=== PATIENT | female | born 1950 | race Caucasian/White ===

== ENCOUNTER 2016-11-30 06:39 | Day surgery (SDC) | payer MEDICARE, BC ==
[2016-11-30] MEDS ORDERED: Sodium Chloride 0.9% 1,000 ML IV SCH (07:00)
[2016-11-30] MEDS ORDERED: fentaNYL 100 MCG/2 ML SDV ONE (07:41)
[2016-11-30] MEDS ORDERED: Propofol 200 MG/20 ML SDV ONE (07:41)
[2016-11-30] MEDS ORDERED: Midazolam 1 MG/ML 2 ML SDV ONE (07:42)
[2016-11-30 08:58] VITALS: BP 106/58
--- NOTE | 2016-11-30 11:04 | OR ---
DATE OF PROCEDURE: 11/30/2016 PROCEDURE: Colonoscopy. FINDINGS: Normal colonoscopy. PREOPERATIVE DIAGNOSIS: Screening colonoscopy. POSTOPERATIVE DIAGNOSIS: Screening colonoscopy. RISKS: Risks, benefits, alternatives, and limitations including, but not limited to infection, bleeding, and perforation were explained to the patient, and she wished to proceed. PROCEDURE IN DETAIL: The patient was placed in left lateral decubitus position. Digital rectal exam was performed without abnormality. The scope was introduced and advanced atraumatically to the ileocecal valve. The scope was brought back to the ascending, transverse, descending colon, and retroflexed. No masses. No blood. No polyps. No diverticulosis. No abnormalities and retroflexed. The patient tolerated the procedure well. Jesus Benitez MD /[id number]
== END 2016-11-30 09:20 | disposition home or self-care (01) ==
LOC: JP.SDS 06:39
PROVIDERS: ATTEND Surgery
DX: Z12.11 Encounter for screening for malignant neoplasm of colon (principal); I10 Essential (primary) hypertension; E11.9 Type 2 diabetes mellitus without complications; E03.9 Hypothyroidism, unspecified; K21.9 Gastro-esophageal reflux disease without esophagitis; Z88.8 Allergy status to other drugs, medicaments and biological substances; Z91.030 Bee allergy status
CPT/HCPCS: G0121; J2250; J2704; J3010; J7040

== ENCOUNTER 2020-09-15 21:40 | Emergency (ER) | payer MEDICARE, BC ==
[2020-09-15] MEDS ORDERED: Ketorolac 30 MG/ML SDV IM ONE (22:51)
--- NOTE | 2020-09-15 22:54 | EDM.PDOC ---
ED HPI GENERAL MEDICAL PROBLEM - General Chief Complaint: General Stated Complaint: COVID SHOT SUNDAY, NOT FELING WELL Time Seen by Provider: 09/15/20 22:46 Source of Information: Reports: Patient, Family, RN Notes Reviewed History Limitations: Reports: No Limitations - History of Present Illness INITIAL COMMENTS - FREE TEXT/NARRATIVE: 70-year-old female presents emergency department a complaint of confusion and fever. She recently received her second Covid shot Materna yesterday then started developing symptoms she has taken Tylenol. Her biggest issue is that she gets confused and cannot give herself her insulin injections - Related Data Allergies Allergy/AdvReac Type Severity Reaction Status Date / Time venom-honey bee Allergy Severe Difficulty Verified 09/15/20 22:17 [bee venom (honey bee)] Breathing lisinopril AdvReac Cough Verified 09/15/20 22:17 Home Meds: Home Meds Acyclovir [Zovirax] 200 mg PO ASDIRECTED PRN 10/16/14 [History] Aspirin [Halfprin] 81 mg PO DAILY 10/16/14 [History] EPINEPHrine [Epinephrine] 0.3 mg IJ ASDIRECTED PRN 10/16/14 [History] Levothyroxine [Synthroid] 125 mcg PO DAILY 10/16/14 [History] Losartan Potassium 100 mg PO DAILY 10/16/14 [History] Albuterol [Ventolin HFA] 2 puff INH Q4H PRN #1 puff 10/22/14 [Rx] Cholecalciferol (Vitamin D3) [Vitamin D3] 1,000 units PO DAILY 11/28/16 [History] nadoloL [Naldol] 1.5 tab PO DAILY 11/28/16 [History] metFORMIN [Glucophage XR] 1,000 mg PO BIDMEALS 11/30/16 [History] Calcium Carbonate/Magnesium Ox [Oyster Shell Calcium-Magnes] 1 tab PO DAILY 09/15/20 [History] Insulin Detemir [Levemir Flextouch] 30 unit SQ BEDTIME 09/15/20 [History] Past Medical History HEENT History: Reports: Impaired Vision, Sinusitis Cardiovascular History: Reports: Hypertension Respiratory History: Reports: SOB Gastrointestinal History: Reports: Cholelithiasis, GERD, Other (See Below) Other Gastrointestinal History: "fatty liver disease" Genitourinary History: Reports: UTI, Recurrent 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: Musculoskeletal History: Reports: Arthritis, Back Pain, Chronic Neurological History: Reports: Concussion Endocrine/Metabolic History: Reports: Diabetes, Type II, Hypothyroidism - Infectious Disease History Infectious Disease History: Reports: Chicken Pox, Measles, Mumps - Past Surgical History GI Surgical History: Reports: Appendectomy, Cholecystectomy Female Surgical History: Reports: Section, Tubal Ligation Musculoskeletal Surgical History: Reports: Other (See Below) Other Musculoskeletal Surgeries/Procedures:: cortisone injections bilateral shoulders Social & Family History - Family History Family Medical History: No Pertinent Family History - Tobacco Use Tobacco Use Status *Q: Former Tobacco User Used Tobacco, but Quit: Yes Month/Year Tobacco Last Used: 2000 - Caffeine Use Caffeine Use: Reports: Coffee - Recreational Drug Use Recreational Drug Use: No ED ROS GENERAL - Review of Systems Review Of Systems: See Below Constitutional: Reports: Fever. Denies: Chills HEENT: Reports: No Symptoms Respiratory: Reports: No Symptoms Cardiovascular: Reports: No Symptoms GI/Abdominal: Reports: No Symptoms : Reports: No Symptoms Neurological: Reports: Confusion ED EXAM, GENERAL - Physical Exam Exam: See Below Exam Limited By: No Limitations General Appearance: Alert, WD/WN, No Apparent Distress Respiratory/Chest: No Respiratory Distress, Lungs Clear, Normal Breath Sounds, No Accessory Muscle Use, Chest Non-Tender Cardiovascular: Regular Rate, Rhythm, No Murmur GI/Abdominal: Soft, Non-Tender Extremities: No Pedal Edema Course - Vital Signs Last Recorded V/S: Last Vital Signs Temp 99.7 F 09/16/20 00:46 Pulse 68 09/16/20 00:46 Resp 20 09/16/20 00:46 BP 137/49 L 09/16/20 00:46 Pulse Ox 95 09/16/20 00:46 - Orders/Labs/Meds Orders: Active Orders 24 hr Category Date Time Status Vital Signs [RC] Q1H Care 09/15/20 22:51 Active Chest 2V [CR] Routine Exams 09/15/20 22:50 Taken Labs: Laboratory Tests 09/15/20 09/15/20 09/15/20 Range/Units 23:04 23:04 23:04 WBC 5.4 (4.5-11.0) K/uL RBC 3.97 (3.30-5.50) M/uL Hgb 11.9 L D (12.0-15.0) g/dL Hct 36.2 (36.0-48.0) % MCV 91 (80-98) fL MCH 30 (27-31) pg MCHC 33 (32-36) % Plt Count 97 L (150-400) K/uL Neut % (Auto) 81 H (36-66) % Lymph % (Auto) 10 L (24-44) % Peach % (Auto) 8 H (2-6) % Eos % (Auto) 0 L (2-4) % Baso % (Auto) 0 (0-1) % Sodium 136 L (140-148) mmol/L Potassium 4.6 (3.6-5.2) mmol/L Chloride 98 L (100-108) mmol/L Carbon Dioxide 23 (21-32) mmol/L Anion Gap 19.6 H (5.0-14.0) mmol/L BUN 23 H D (7-18) mg/dL Creatinine 1.1 H D (0.6-1.0) mg/dL Est Cr Clr Drug Dosing 37.10 mL/min Estimated GFR (MDRD) 49 L (>60) Glucose 324 H (74-106) mg/dL Lactic Acid 3.4 H (0.4-2.0) mmol/L Calcium 9.6 (8.5-10.1) mg/dL Total Bilirubin 1.9 H D (0.2-1.0) mg/dL AST 53 H D (15-37) U/L ALT 50 (12-78) U/L Alkaline Phosphatase 173 H (46-116) U/L C-Reactive Protein 4.77 H (0.0-0.3) mg/dL Total Protein 7.0 (6.4-8.2) g/dL Albumin 3.3 L (3.4-5.0) g/dL Globulin 3.7 H (2.3-3.5) g/dL Albumin/Globulin Ratio 0.9 L (1.2-2.2) Procalcitonin ng/mL Urine Color (YELLOW) Urine Appearance (CLEAR) Urine pH (5.0-8.0) Ur Specific Garfield (1.008-1.030) Urine Protein (NEGATIVE) mg/dL Urine Glucose (UA) (NEGATIVE) mg/dL Urine Ketones (NEGATIVE) mg/dL Urine Occult Blood (NEGATIVE) Urine Nitrite (NEGATIVE) Urine Bilirubin (NEGATIVE) Urine Urobilinogen (0.2-1.0) EU/dL Ur Leukocyte Esterase (NEGATIVE) Urine RBC (0-5) Urine WBC (0-5) Ur Epithelial Cells Amorphous Sediment Urine Bacteria Urine Mucus Influenza Type A RNA (NEGATIVE) RSV RNA (INAAT) (NEGATIVE) Influenza Type B RNA (NEGATIVE) SARS-CoV-2 RNA (RENÉ) (NEGATIVE) 09/15/20 09/15/20 09/15/20 Range/Units 23:04 23:10 23:53 WBC (4.5-11.0) K/uL RBC (3.30-5.50) M/uL Hgb (12.0-15.0) g/dL Hct (36.0-48.0) % MCV (80-98) fL MCH (27-31) pg MCHC (32-36) % Plt Count (150-400) K/uL Neut % (Auto) (36-66) % Lymph % (Auto) (24-44) % Peach % (Auto) (2-6) % Eos % (Auto) (2-4) % Baso % (Auto) (0-1) % Sodium (140-148) mmol/L Potassium (3.6-5.2) mmol/L Chloride (100-108) mmol/L Carbon Dioxide (21-32) mmol/L Anion Gap (5.0-14.0) mmol/L BUN (7-18) mg/dL Creatinine (0.6-1.0) mg/dL Est Cr Clr Drug Dosing mL/min Estimated GFR (MDRD) (>60) Glucose (74-106) mg/dL Lactic Acid (0.4-2.0) mmol/L Calcium (8.5-10.1) mg/dL Total Bilirubin (0.2-1.0) mg/dL AST (15-37) U/L ALT (12-78) U/L Alkaline Phosphatase (46-116) U/L C-Reactive Protein (0.0-0.3) mg/dL Total Protein (6.4-8.2) g/dL Albumin (3.4-5.0) g/dL Globulin (2.3-3.5) g/dL Albumin/Globulin Ratio (1.2-2.2) Procalcitonin 0.52 ng/mL Urine Color Yellow (YELLOW) Urine Appearance Slightly cloudy A (CLEAR) Urine pH 5.5 (5.0-8.0) Ur Specific Garfield >= 1.030 (1.008-1.030) Urine Protein 30 H (NEGATIVE) mg/dL Urine Glucose (UA) 500 H (NEGATIVE) mg/dL Urine Ketones Trace H (NEGATIVE) mg/dL Urine Occult Blood Small H (NEGATIVE) Urine Nitrite Negative (NEGATIVE) Urine Bilirubin Negative (NEGATIVE) Urine Urobilinogen 1.0 (0.2-1.0) EU/dL Ur Leukocyte Esterase Negative (NEGATIVE) Urine RBC 0-5 (0-5) Urine WBC 0-5 (0-5) Ur Epithelial Cells Moderate Amorphous Sediment Not seen Urine Bacteria Few Urine Mucus Many Influenza Type A RNA Negative (NEGATIVE) RSV RNA (INAAT) Negative (NEGATIVE) Influenza Type B RNA Negative (NEGATIVE) SARS-CoV-2 RNA (RENÉ) Negative (NEGATIVE) Meds: Medications Discontinued Medications Generic Name Dose Route Start Last Admin Trade Name Amada PRN Reason Stop Dose Admin Ketorolac Tromethamine 30 mg 09/15/20 22:51 09/15/20 23:14 Ketorolac 30 Mg/Ml Sdv IM 09/15/20 22:52 30 mg ONETIME ONE Administration Departure - Departure Time of Disposition: 00:56 Disposition: Home, Self-Care 01 Condition: Fair Clinical Impression: Adverse effect of COVID-19 vaccine - Discharge Information Referrals: Braden Bucio MD [Primary Care Provider] - Forms: ED Department Discharge Additional Instructions: Continue symptomatic care Tylenol or Motrin as needed, rest and fluids, please followup with your primary care provider in 2-3 days if not better, please call return to the emergency department with worsening of symptoms. Sepsis Event Note (ED) - Evaluation Sepsis Screening Result: No Definite Risk - Focused Exam Vital Signs: Vital Signs Temp Pulse Resp BP Pulse Ox 09/16/20 00:46 99.7 F 68 20 137/49 L 95 09/15/20 23:45 70 22 H 145/60 H 94 L 09/15/20 22:15 101.8 F H 87 20 172/88 H 94 L 09/15/20 22:13 101.8 F H 87 20 172/88 H 94 L - My Orders Last 24 Hours: My Active Orders 09/15/20 22:50 Chest 2V [CR] Routine 09/15/20 22:51 Vital Signs [RC] Q1H - Assessment/Plan Last 24 Hours: My Active Orders 09/15/20 22:50 Chest 2V [CR] Routine 09/15/20 22:51 Vital Signs [RC] Q1H Plan: Assessment Acuity = acute Site and laterality = fever, confusion Etiology = probably from Pfizer Covid shot Manifestations = none Location of injury = Home Lab values = CBC unremarkable creatinine elevated 1.1 consistent chronic renal failure stage T3a Leukos elevated 324 consistent hyperglycemia lactic acid slightly elevated 3.4 consistent with lactic acidosis CRP elevated 4.77 urinalysis negative Covid was negative chest x-ray I did review films myself I cannot appreciate any acute process, the official read from radiology is pending Plan I did review with her side effects that we have seen from the Covid vaccine talk to her about hospital admission her biggest thing with confusion is she has difficulty running her insulin. She declined on admission would like to go home and do watchful waiting. She will return with worsening of symptoms This note was dictated using [employer] voice recognition software please call with any questions on syntax or grammar.
[2020-09-16 00:47] LABS: CORONAVIRUS COVID-19 NAA NEGATIVE (NEGATIVE)
[2020-09-16 00:48] VITALS: BP 137/49; PULSE 68
--- NOTE | 2020-09-16 09:28 | CR ---
CHEST: 2 view CLINICAL HISTORY:SOB COMPARISON:2014 FINDINGS: The heart size, pulmonary vascularity and hilar structures are normal. No infiltrate effusion or pneumothorax is seen. IMPRESSION: No acute cardiopulmonary process.
== END 2020-09-16 01:02 | disposition home or self-care (01) ==
LOC: JP.ED 21:40
DX: R41.0 Disorientation, unspecified (principal); R50.9 Fever, unspecified; T88.1XXA Other complications following immunization, not elsewhere classified, initial encounter; I10 Essential (primary) hypertension; M19.90 Unspecified osteoarthritis, unspecified site; E11.9 Type 2 diabetes mellitus without complications; E03.9 Hypothyroidism, unspecified; Z87.891 Personal history of nicotine dependence; Z91.030 Bee allergy status; Z88.8 Allergy status to other drugs, medicaments and biological substances; Z79.82 Long term (current) use of aspirin; Z79.4 Long term (current) use of insulin; Z79.899 Other long term (current) drug therapy; Z20.822 Contact with and (suspected) exposure to COVID-19
CPT/HCPCS: 0241U; 36415; 71046; 80053; 81001; 83605; 84145; 85025; 86140; 96372; 99285; J1885; 99283

== ENCOUNTER 2022-11-28 17:17 | Emergency (ER) | payer MEDICARE, BC ==
[2022-11-28] MEDS ORDERED: Sodium Chloride 0.9% 10 ML Syringe FLUSH PRN (17:53)
[2022-11-28 18:11] LABS: BASOPHILS ABSOLUTE AUTO 0.01 K/uL (0.00-0.10); BASOPHILS PERCENT AUTO 0.2 % (0.1-1.3); EOSINOPHILS ABSOLUTE AUTO 0.03 K/uL (0.00-0.40); EOSINOPHILS PERCENT AUTO 0.6 % (0.0-5.4); HEMATOCRIT 31.8 % (34.3-46.0); HEMOGLOBIN 10.7 g/dL (11.2-15.5); IMMATURE GRAN ABSOLUTE AUTO 0.02 K/uL (0.00-0.23); IMMATURE GRAN PERCENT AUTO 0.4 % (0.0-0.7); LYMPHOCYTES ABSOLUTE AUTO 0.38 K/uL (0.8-3.3); LYMPHOCYTES PERCENT AUTO 8.1 % (11.4-47.7); MEAN CORPUSCULAR HEMOGLOBIN 30.8 pg (31.6-35.5); MEAN CORPUSCULAR HGB CONC 33.6 g/dL (31.6-35.5); MEAN CORPUSCULAR VOLUME 91.6 fL (81.4-99.0); MONOCYTES ABSOLUTE AUTO 0.51 K/uL (0.20-0.90); MONOCYTES PERCENT AUTO 10.8 % (3.3-12.6); NEUTROPHILS ABSOLUTE AUTO 3.77 K/uL (1.0-7.6); NEUTROPHILS PERCENT AUTO 79.9 % (40.0-78.1); PLATELET COUNT,PLT 82 K/uL (130-375); RED BLOOD CELL COUNT 3.47 M/uL (3.77-5.24); WHITE BLOOD CELL COUNT,WBC 4.7 K/uL (3.2-11.0)
[2022-11-28 18:28] VITALS: PULSE 91
[2022-11-28 18:31] LABS: A/G RATIO 0.6 (1.2-2.2); ALANINE AMINOTRANSFERASE,ALT 43 U/L (12-78); ALBUMIN 2.4 g/dL (3.4-5.0); ALKALINE PHOSPHATASE 210 U/L (46-116); ASPARTATE AMNIOTRANSFERASE,AST 59 U/L (15-37); BILIRUBIN TOTAL 1.7 mg/dL (0.2-1.0); BLOOD UREA NITROGEN,BUN 14 mg/dL (7-18); CALCIUM 8.8 mg/dL (8.5-10.1); CARBON DIOXIDE,CO2 27 mmol/L (21-32); CHLORIDE,CL 102 mmol/L (100-108); CREATININE 0.8 mg/dL (0.6-1.0); EST CRCL DRUG DOSING (CG) 49.53 mL/min; ESTIMATED GFR 78 mL/min (>60); GLUCOSE RANDOM 227 mg/dL (74-106); PROTEIN TOTAL,TP 6.7 g/dL (6.4-8.2); SODIUM,NA 134 mmol/L (140-148)
[2022-11-28] MEDS ORDERED: Lactulose Soln 10 GM/15 ML 15 ML UD Cup PO ONE (18:41)
[2022-11-28] MEDS ORDERED: LACTULOSE 200 GM RECTAL ONE ×2 (18:42)
[2022-11-28] MEDS ORDERED: WATER FOR IRRIGATION STERILE RECTAL ONE ×2 (18:42)
[2022-11-28 18:59] LABS: APPEARANCE,URINE SLIGHTLY CLOUDY (CLEAR); BILIRUBIN,URINE NEGATIVE (NEGATIVE); COLOR,URINE YELLOW (YELLOW); GLUCOSE,URINE 250 mg/dL (NEGATIVE); KETONES,URINE NEGATIVE (NEGATIVE); LEUKOCYTE ESTERASE,URINE NEGATIVE (NEGATIVE); NITRITE,URINE NEGATIVE (NEGATIVE); OCCULT BLOOD,URINE NEGATIVE (NEGATIVE); PROTEIN,URINE TRACE mg/dL (NEGATIVE)
[2022-11-28 19:04] LABS: AMORPHOUS SEDIMENT,URINE NOT SEEN; BACTERIA,URINE MODERATE; EPITHELIAL CELLS,URINE MODERATE; MUCUS,URINE NOT SEEN; RBC,URINE 0-5 (0-5); WBC,URINE 0-5 (0-5)
[2022-11-28 22:02] VITALS: BP 140/57
== END 2022-11-28 22:05 ==
LOC: JP.ED 17:17
DX: K76.82 Hepatic encephalopathy (principal); I10 Essential (primary) hypertension; M19.90 Unspecified osteoarthritis, unspecified site; E11.9 Type 2 diabetes mellitus without complications; E03.9 Hypothyroidism, unspecified; Z86.16 Personal history of COVID-19; Z91.030 Bee allergy status; Z88.6 Allergy status to analgesic agent; Z88.8 Allergy status to other drugs, medicaments and biological substances; Z79.82 Long term (current) use of aspirin; Z79.84 Long term (current) use of oral hypoglycemic drugs; Z79.899 Other long term (current) drug therapy; W06.XXXA Fall from bed, initial encounter
CPT/HCPCS: 36415; 80053; 81001; 82140; 82947; 83605; 85025; 99284; A9270

== ENCOUNTER 2023-04-14 19:37 | Inpatient (IN) | payer MEDICARE, BC ==
[2023-04-14 20:00] LABS: BASOPHILS ABSOLUTE AUTO 0.02 K/uL (0.00-0.10); BASOPHILS PERCENT AUTO 0.3 % (0.1-1.3); EOSINOPHILS ABSOLUTE AUTO 0.05 K/uL (0.00-0.40); EOSINOPHILS PERCENT AUTO 0.7 % (0.0-5.4); HEMATOCRIT 32.7 % (34.3-46.0); HEMOGLOBIN 10.8 g/dL (11.2-15.5); IMMATURE GRAN ABSOLUTE AUTO 0.02 K/uL (0.00-0.23); IMMATURE GRAN PERCENT AUTO 0.3 % (0.0-0.7); LYMPHOCYTES PERCENT AUTO 6.9 % (11.4-47.7); MEAN CORPUSCULAR HEMOGLOBIN 30.4 pg (31.6-35.5); MEAN CORPUSCULAR VOLUME 92.1 fL (81.4-99.0); MONOCYTES ABSOLUTE AUTO 0.65 K/uL (0.20-0.90); NEUTROPHILS PERCENT AUTO 82.8 % (40.0-78.1); PLATELET COUNT,PLT 95 K/uL (130-375); RED BLOOD CELL COUNT 3.55 M/uL (3.77-5.24); WHITE BLOOD CELL COUNT,WBC 7.2 K/uL (3.2-11.0)
[2023-04-14] MEDS ORDERED: Sodium Chloride 0.9% 1,000 ML IV SCH (20:00)
[2023-04-14 20:18] LABS: MAGNESIUM 1.6 mg/dL (1.8-2.4)
[2023-04-14 20:23] LABS: A/G RATIO 0.6 (1.2-2.2); ALANINE AMINOTRANSFERASE,ALT 32 U/L (12-78); ALBUMIN 2.7 g/dL (3.4-5.0); ALKALINE PHOSPHATASE 185 U/L (46-116); ASPARTATE AMNIOTRANSFERASE,AST 44 U/L (15-37); BILIRUBIN TOTAL 1.4 mg/dL (0.2-1.0); BLOOD UREA NITROGEN,BUN 20 mg/dL (7-18); CARBON DIOXIDE,CO2 25 mmol/L (21-32); CHLORIDE,CL 104 mmol/L (100-108); CREATININE 1.1 mg/dL (0.6-1.0); ESTIMATED GFR 53 mL/min (>60); GLUCOSE RANDOM 309 mg/dL (74-106); POTASSIUM,K 4.6 mmol/L (3.6-5.2); SODIUM,NA 137 mmol/L (140-148)
[2023-04-14 20:25] LABS: ANION GAP 12.6 mmol/L (5.0-14.0)
[2023-04-14] MEDS ORDERED: Lactulose Soln 10 GM/15 ML 15 ML UD Cup PO ONE (20:32)
[2023-04-14 21:44] LABS: CORONAVIRUS COVID-19 NAA NEGATIVE (NEGATIVE); INFLUENZA A NAA NEGATIVE (NEGATIVE); INFLUENZA B NAA NEGATIVE (NEGATIVE); RESPIRATORY SYNCYTIAL VIR NAA NEGATIVE (NEGATIVE)
[2023-04-14] MEDS ORDERED: Ondansetron 4 MG Tab.DIS PO PRN (22:55)
[2023-04-14] MEDS ORDERED: Sennosides/Docusate Sodium 50-8.6 MG Tab PO PRN (22:55)
[2023-04-14] MEDS ORDERED: Ondansetron 4 MG/2 ML SDV IV PRN (22:55)
[2023-04-14] MEDS ORDERED: Magnesium Hydroxide 400 MG/5 ML Susp 30 ML Cup PO PRN (22:55)
[2023-04-14] MEDS: metFORMIN 500 MG Tab PO SCH (23:25)
[2023-04-14] MEDS: Lactulose Soln 10 GM/15 ML 15 ML UD Cup PO SCH (23:25)
[2023-04-14] MEDS: Sodium Chloride 0.9% 1,000 ML IV SCH (23:28)
[2023-04-14] MEDS: Magnesium Sulfate/Water 2 GM in Premix Bag 1 BAG IV SCH (23:40)
[2023-04-15] MEDS: Lactulose Soln 10 GM/15 ML 15 ML UD Cup PO SCH ×8 (00:55→21:04)
[2023-04-15] MEDS: Magnesium Sulfate/Water 2 GM in Premix Bag 1 BAG IV SCH (04:59)
[2023-04-15 05:17] LABS: HEMATOCRIT 27.8 % (34.3-46.0); HEMOGLOBIN 9.1 g/dL (11.2-15.5); MEAN CORPUSCULAR HEMOGLOBIN 30.1 pg (31.6-35.5); MEAN CORPUSCULAR HGB CONC 32.7 g/dL (31.6-35.5); MEAN CORPUSCULAR VOLUME 92.1 fL (81.4-99.0); RED BLOOD CELL COUNT 3.02 M/uL (3.77-5.24)
[2023-04-15 05:35] LABS: A/G RATIO 0.6 (1.2-2.2); ALANINE AMINOTRANSFERASE,ALT 29 U/L (12-78); ALBUMIN 2.1 g/dL (3.4-5.0); ALKALINE PHOSPHATASE 145 U/L (46-116); ASPARTATE AMNIOTRANSFERASE,AST 33 U/L (15-37); BILIRUBIN TOTAL 1.6 mg/dL (0.2-1.0); BLOOD UREA NITROGEN,BUN 17 mg/dL (7-18); CARBON DIOXIDE,CO2 24 mmol/L (21-32); CHLORIDE,CL 109 mmol/L (100-108); CREATININE 0.8 mg/dL (0.6-1.0); EST CRCL DRUG DOSING (CG) 49.53 mL/min; ESTIMATED GFR 78 mL/min (>60); GLUCOSE RANDOM 156 mg/dL (74-106); PROTEIN TOTAL,TP 5.9 g/dL (6.4-8.2); SODIUM,NA 139 mmol/L (140-148)
[2023-04-15] MEDS ORDERED: metFORMIN 500 MG Tab PO SCH (08:00)
[2023-04-15] MEDS: Levothyroxine 100 MCG Tab PO SCH (08:03)
[2023-04-15] MEDS: metFORMIN 500 MG Tab PO SCH ×2 (08:04→16:56)
[2023-04-15] MEDS: Aspirin 81 MG Tab.EC PO SCH (08:04)
[2023-04-15] MEDS: Insulin Lispro 100 Unit/ML 3 ML KwikPen SUBCUT SCH ×4 (08:15→21:04)
[2023-04-15] MEDS: Losartan 50 MG Tab PO SCH ×2 (08:20→10:38)
[2023-04-15] MEDS: Insulin Glargine,Human Rec. Analog 100 Units/ML 3 ML Pen SUBCUT SCH ×2 (08:24→21:06)
[2023-04-15] MEDS: Sodium Chloride 0.9% 1,000 ML IV SCH (08:31)
[2023-04-15] MEDS ORDERED: NADOLOL PO SCH (09:00)
[2023-04-15] MEDS: Levothyroxine 25 MCG Tab PO SCH (09:01)
[2023-04-15] MEDS: Metoprolol Succinate 50 MG Tab.ER PO SCH (13:34)
[2023-04-15] MEDS: Magnesium Oxide 400 MG Tab PO SCH ×2 (15:14→21:06)
[2023-04-15 19:05] LABS: APPEARANCE,URINE CLOUDY (CLEAR); BILIRUBIN,URINE NEGATIVE (NEGATIVE); COLOR,URINE YELLOW (YELLOW); GLUCOSE,URINE 100 mg/dL (NEGATIVE); KETONES,URINE NEGATIVE (NEGATIVE); LEUKOCYTE ESTERASE,URINE NEGATIVE (NEGATIVE); NITRITE,URINE NEGATIVE (NEGATIVE); OCCULT BLOOD,URINE NEGATIVE (NEGATIVE); PH,URINE 5.5 (5.0-8.0); PROTEIN,URINE NEGATIVE (NEGATIVE); UROBILINOGEN,URINE 0.2 EU/dL (0.2-1.0)
[2023-04-15 19:12] LABS: AMORPHOUS SEDIMENT,URINE NOT SEEN; BACTERIA,URINE MANY; EPITHELIAL CELLS,URINE MANY; MUCUS,URINE MODERATE; RBC,URINE 0-5 (0-5)
[2023-04-16 05:54] LABS: HEMATOCRIT 27.7 % (34.3-46.0); HEMOGLOBIN 9.2 g/dL (11.2-15.5); MEAN CORPUSCULAR HEMOGLOBIN 30.8 pg (31.6-35.5); MEAN CORPUSCULAR HGB CONC 33.2 g/dL (31.6-35.5); MEAN CORPUSCULAR VOLUME 92.6 fL (81.4-99.0); RED BLOOD CELL COUNT 2.99 M/uL (3.77-5.24); WHITE BLOOD CELL COUNT,WBC 7.3 K/uL (3.2-11.0)
[2023-04-16 06:12] LABS: A/G RATIO 0.6 (1.2-2.2); ALANINE AMINOTRANSFERASE,ALT 18 U/L (12-78); ALBUMIN 2.2 g/dL (3.4-5.0); ALKALINE PHOSPHATASE 141 U/L (46-116); ASPARTATE AMNIOTRANSFERASE,AST 30 U/L (15-37); BILIRUBIN TOTAL 1.2 mg/dL (0.2-1.0); BLOOD UREA NITROGEN,BUN 14 mg/dL (7-18); CALCIUM 7.9 mg/dL (8.5-10.1); CARBON DIOXIDE,CO2 26 mmol/L (21-32); CHLORIDE,CL 108 mmol/L (100-108); CREATININE 0.7 mg/dL (0.6-1.0); EST CRCL DRUG DOSING (CG) 56.61 mL/min; ESTIMATED GFR 91 mL/min (>60); GLUCOSE RANDOM 107 mg/dL (74-106); POTASSIUM,K 4.3 mmol/L (3.6-5.2); SODIUM,NA 138 mmol/L (140-148)
[2023-04-16 06:13] LABS: ANION GAP 8.3 mmol/L (5.0-14.0)
[2023-04-16] MEDS: Insulin Lispro 100 Unit/ML 3 ML KwikPen SUBCUT SCH ×4 (07:39→22:02)
[2023-04-16] MEDS: Levothyroxine 25 MCG Tab PO SCH (07:59)
[2023-04-16] MEDS: Levothyroxine 100 MCG Tab PO SCH (08:00)
[2023-04-16] MEDS: Magnesium Oxide 400 MG Tab PO SCH ×2 (08:01→20:06)
[2023-04-16] MEDS: Lactulose Soln 10 GM/15 ML 15 ML UD Cup PO SCH ×3 (08:01→20:06)
[2023-04-16] MEDS: Aspirin 81 MG Tab.EC PO SCH (08:01)
[2023-04-16] MEDS: Losartan 50 MG Tab PO SCH (09:33)
[2023-04-16] MEDS: metFORMIN 500 MG Tab PO SCH ×2 (09:52→16:21)
[2023-04-16] MEDS: Insulin Glargine,Human Rec. Analog 100 Units/ML 3 ML Pen SUBCUT SCH ×3 (09:52→22:02)
[2023-04-16] MEDS: Metoprolol Succinate 50 MG Tab.ER PO SCH (09:59)
[2023-04-16] MEDS: Rifaximin 550 MG Tab PO SCH ×2 (11:50→20:06)
[2023-04-16] MEDS ORDERED: Metoprolol Succinate 50 MG Tab.ER PO SCH (13:30)
[2023-04-17 05:53] LABS: HEMATOCRIT 27.6 % (34.3-46.0); HEMOGLOBIN 9.1 g/dL (11.2-15.5); MEAN CORPUSCULAR HEMOGLOBIN 30.7 pg (31.6-35.5); MEAN CORPUSCULAR VOLUME 93.2 fL (81.4-99.0); RED BLOOD CELL COUNT 2.96 M/uL (3.77-5.24); WHITE BLOOD CELL COUNT,WBC 7.3 K/uL (3.2-11.0)
[2023-04-17 06:08] LABS: ANION GAP 9.5 mmol/L (5.0-14.0); CALCIUM 7.9 mg/dL (8.5-10.1); CREATININE 0.7 mg/dL (0.6-1.0); EST CRCL DRUG DOSING (CG) 56.61 mL/min; POTASSIUM,K 4.5 mmol/L (3.6-5.2)
[2023-04-17] MEDS: Levothyroxine 25 MCG Tab PO SCH (07:52)
[2023-04-17] MEDS: Levothyroxine 100 MCG Tab PO SCH (07:52)
[2023-04-17] MEDS: Insulin Lispro 100 Unit/ML 3 ML KwikPen SUBCUT SCH ×4 (08:00→20:57)
[2023-04-17] MEDS: Lactulose Soln 10 GM/15 ML 15 ML UD Cup PO SCH ×3 (09:20→22:14)
[2023-04-17] MEDS: Rifaximin 550 MG Tab PO SCH ×2 (09:22→22:14)
[2023-04-17] MEDS: metFORMIN 500 MG Tab PO SCH ×2 (09:22→16:54)
[2023-04-17] MEDS: Aspirin 81 MG Tab.EC PO SCH (09:22)
[2023-04-17] MEDS: Metoprolol Succinate 50 MG Tab.ER PO SCH (09:23)
[2023-04-17] MEDS: Magnesium Oxide 400 MG Tab PO SCH ×2 (09:23→22:14)
[2023-04-17] MEDS: Acetaminophen 325 MG Tab PO PRN (09:35)
[2023-04-17] MEDS: Insulin Glargine,Human Rec. Analog 100 Units/ML 3 ML Pen SUBCUT SCH ×2 (09:36→10:27)
[2023-04-17] MEDS ORDERED: Iopamidol 612 MG/ML 100 ML Bottle IV SCH (18:00)
[2023-04-17] MEDS ORDERED: Sodium Chloride 0.9% 50 ML IV SCH (18:00)
[2023-04-17] MEDS ORDERED: Insulin Glargine,Human Rec. Analog 100 Units/ML 3 ML Pen SUBCUT SCH (21:00)
[2023-04-17] MEDS: cefTRIAXone 1 GM in Sodium Chloride 0.9% 50 ML IV SCH (22:35)
[2023-04-18 04:52] LABS: A/G RATIO 0.6 (1.2-2.2); ALANINE AMINOTRANSFERASE,ALT 18 U/L (12-78); ALBUMIN 2.2 g/dL (3.4-5.0); ALKALINE PHOSPHATASE 145 U/L (46-116); ASPARTATE AMNIOTRANSFERASE,AST 28 U/L (15-37); BILIRUBIN TOTAL 1.8 mg/dL (0.2-1.0); BLOOD UREA NITROGEN,BUN 19 mg/dL (7-18); CALCIUM 8.5 mg/dL (8.5-10.1); CARBON DIOXIDE,CO2 27 mmol/L (21-32); CHLORIDE,CL 103 mmol/L (100-108); CREATININE 0.9 mg/dL (0.6-1.0); EST CRCL DRUG DOSING (CG) 44.03 mL/min; ESTIMATED GFR 68 mL/min (>60); GLUCOSE RANDOM 151 mg/dL (74-106); POTASSIUM,K 4.7 mmol/L (3.6-5.2); PROTEIN TOTAL,TP 6.2 g/dL (6.4-8.2); SODIUM,NA 135 mmol/L (140-148)
[2023-04-18 05:26] LABS: ANION GAP 9.7 mmol/L (5.0-14.0)
[2023-04-18] MEDS: metFORMIN 500 MG Tab PO SCH ×2 (07:59→16:39)
[2023-04-18] MEDS: Levothyroxine 100 MCG Tab PO SCH (07:59)
[2023-04-18] MEDS: Levothyroxine 25 MCG Tab PO SCH (07:59)
[2023-04-18] MEDS: Lactulose Soln 10 GM/15 ML 15 ML UD Cup PO SCH ×3 (07:59→20:28)
[2023-04-18] MEDS: Magnesium Oxide 400 MG Tab PO SCH ×2 (08:00→20:28)
[2023-04-18] MEDS: Rifaximin 550 MG Tab PO SCH ×2 (08:00→20:28)
[2023-04-18] MEDS: Aspirin 81 MG Tab.EC PO SCH (08:00)
[2023-04-18] MEDS: Metoprolol Succinate 50 MG Tab.ER PO SCH (08:00)
[2023-04-18] MEDS: Insulin Lispro 100 Unit/ML 3 ML KwikPen SUBCUT SCH ×4 (08:34→21:01)
[2023-04-18] MEDS: Insulin Glargine,Human Rec. Analog 100 Units/ML 3 ML Pen SUBCUT SCH ×2 (08:36→21:01)
[2023-04-18 09:46] LABS: HEMATOCRIT 31.2 % (34.3-46.0); HEMOGLOBIN 10.1 g/dL (11.2-15.5); MEAN CORPUSCULAR HEMOGLOBIN 30.6 pg (31.6-35.5); MEAN CORPUSCULAR HGB CONC 32.4 g/dL (31.6-35.5); MEAN CORPUSCULAR VOLUME 94.5 fL (81.4-99.0); RED BLOOD CELL COUNT 3.3 M/uL (3.77-5.24); WHITE BLOOD CELL COUNT,WBC 10.8 K/uL (3.2-11.0)
[2023-04-18] MEDS ORDERED: Azithromycin 250 MG Tab PO ONE (10:00)
[2023-04-18 10:15] LABS: INR 1.5; PROTHROMBIN TIME 14.6 sec (9.2-10.6); PTT,PARTIAL THROMBOPLSTIN TIME 34.3 sec (21.8-27.3)
[2023-04-18] MEDS ORDERED: Albuterol 0.083% 2.5 MG/3 ML Neb Soln NEB PRN (11:29)
[2023-04-18] MEDS: Acetaminophen 325 MG Tab PO PRN (20:59)
[2023-04-18] MEDS: cefTRIAXone 1 GM in Sodium Chloride 0.9% 50 ML IV SCH (23:25)
[2023-04-19] MEDS: Insulin Lispro 100 Unit/ML 3 ML KwikPen SUBCUT SCH ×4 (08:13→21:37)
[2023-04-19] MEDS: Levothyroxine 100 MCG Tab PO SCH (08:14)
[2023-04-19] MEDS: Levothyroxine 25 MCG Tab PO SCH (08:14)
[2023-04-19] MEDS: Azithromycin 250 MG Tab PO SCH (08:15)
[2023-04-19] MEDS: Metoprolol Succinate 50 MG Tab.ER PO SCH (08:15)
[2023-04-19] MEDS: Rifaximin 550 MG Tab PO SCH ×2 (08:15→21:37)
[2023-04-19] MEDS: Spironolactone 25 MG Tab PO SCH (08:15)
[2023-04-19] MEDS: Magnesium Oxide 400 MG Tab PO SCH ×2 (08:15→21:37)
[2023-04-19] MEDS: Lactulose Soln 10 GM/15 ML 15 ML UD Cup PO SCH ×2 (08:15→21:37)
[2023-04-19] MEDS: metFORMIN 500 MG Tab PO SCH ×2 (08:16→17:26)
[2023-04-19] MEDS: Furosemide 20 MG Tab PO SCH (08:16)
[2023-04-19] MEDS: Insulin Glargine,Human Rec. Analog 100 Units/ML 3 ML Pen SUBCUT SCH ×2 (08:16→21:38)
[2023-04-19] MEDS: Aspirin 81 MG Tab.EC PO SCH (09:27)
[2023-04-19] MEDS: cefTRIAXone 1 GM in Sodium Chloride 0.9% 50 ML IV SCH (22:50)
[2023-04-20] MEDS: Levothyroxine 25 MCG Tab PO SCH (07:32)
[2023-04-20] MEDS: Levothyroxine 100 MCG Tab PO SCH (07:32)
[2023-04-20] MEDS: Insulin Lispro 100 Unit/ML 3 ML KwikPen SUBCUT SCH ×4 (07:33→21:01)
[2023-04-20] MEDS: Insulin Glargine,Human Rec. Analog 100 Units/ML 3 ML Pen SUBCUT SCH ×2 (08:51→21:01)
[2023-04-20] MEDS: metFORMIN 500 MG Tab PO SCH ×2 (08:55→17:13)
[2023-04-20] MEDS: Magnesium Oxide 400 MG Tab PO SCH ×2 (08:56→20:59)
[2023-04-20] MEDS: Lactulose Soln 10 GM/15 ML 15 ML UD Cup PO SCH ×2 (08:56→20:58)
[2023-04-20] MEDS: Furosemide 20 MG Tab PO SCH (08:56)
[2023-04-20] MEDS: Spironolactone 25 MG Tab PO SCH (08:56)
[2023-04-20] MEDS: Aspirin 81 MG Tab.EC PO SCH (08:56)
[2023-04-20] MEDS: Rifaximin 550 MG Tab PO SCH ×2 (08:56→20:59)
[2023-04-20] MEDS: Azithromycin 250 MG Tab PO SCH (08:57)
[2023-04-20] MEDS: Metoprolol Succinate 50 MG Tab.ER PO SCH (09:02)
[2023-04-20] MEDS: Acetaminophen 325 MG Tab PO PRN (10:48)
[2023-04-20] MEDS: cefTRIAXone 1 GM in Sodium Chloride 0.9% 50 ML IV SCH (22:18)
[2023-04-21] MEDS ORDERED: Pantoprazole 40 MG Vial IVPUSH ONE (03:19)
[2023-04-21 04:47] LABS: BASOPHILS ABSOLUTE AUTO 0.03 K/uL (0.00-0.10); BASOPHILS PERCENT AUTO 0.5 % (0.1-1.3); EOSINOPHILS ABSOLUTE AUTO 0.16 K/uL (0.00-0.40); EOSINOPHILS PERCENT AUTO 2.5 % (0.0-5.4); HEMATOCRIT 24.4 % (34.3-46.0); HEMOGLOBIN 7.8 g/dL (11.2-15.5); IMMATURE GRAN ABSOLUTE AUTO 0.06 K/uL (0.00-0.23); IMMATURE GRAN PERCENT AUTO 0.9 % (0.0-0.7); LYMPHOCYTES ABSOLUTE AUTO 1.35 K/uL (0.8-3.3); LYMPHOCYTES PERCENT AUTO 20.9 % (11.4-47.7); MEAN CORPUSCULAR HEMOGLOBIN 30.2 pg (31.6-35.5); MEAN CORPUSCULAR VOLUME 94.6 fL (81.4-99.0); MONOCYTES ABSOLUTE AUTO 0.87 K/uL (0.20-0.90); MONOCYTES PERCENT AUTO 13.5 % (3.3-12.6); NEUTROPHILS ABSOLUTE AUTO 3.99 K/uL (1.0-7.6); NEUTROPHILS PERCENT AUTO 61.7 % (40.0-78.1); PLATELET COUNT,PLT 128 K/uL (130-375); RED BLOOD CELL COUNT 2.58 M/uL (3.77-5.24); WHITE BLOOD CELL COUNT,WBC 6.5 K/uL (3.2-11.0)
[2023-04-21 04:56] LABS: CALCIUM 8.4 mg/dL (8.5-10.1); EST CRCL DRUG DOSING (CG) 39.63 mL/min
[2023-04-21] MEDS: Levothyroxine 100 MCG Tab PO SCH (07:49)
[2023-04-21] MEDS: Insulin Lispro 100 Unit/ML 3 ML KwikPen SUBCUT SCH ×2 (07:49→12:13)
[2023-04-21] MEDS: Levothyroxine 25 MCG Tab PO SCH (07:49)
[2023-04-21] MEDS ORDERED: Insulin Glargine,Human Rec. Analog 100 Units/ML 3 ML Pen SUBCUT SCH (09:00)
[2023-04-21] MEDS ORDERED: Lactulose Soln 10 GM/15 ML 15 ML UD Cup PO SCH (09:00)
[2023-04-21] MEDS: metFORMIN 500 MG Tab PO SCH (09:22)
[2023-04-21] MEDS: Aspirin 81 MG Tab.EC PO SCH (09:23)
[2023-04-21] MEDS: Spironolactone 25 MG Tab PO SCH (09:23)
[2023-04-21] MEDS: Furosemide 20 MG Tab PO SCH (09:23)
[2023-04-21] MEDS: Magnesium Oxide 400 MG Tab PO SCH (09:23)
[2023-04-21] MEDS: Rifaximin 550 MG Tab PO SCH (09:23)
[2023-04-21] MEDS: Azithromycin 250 MG Tab PO SCH (09:24)
[2023-04-21] MEDS: Metoprolol Succinate 50 MG Tab.ER PO SCH (11:28)
[2023-04-21] MEDS ORDERED: Octreotide 100 MCG/ML SDV IVPUSH ONE (11:45)
[2023-04-21] MEDS ORDERED: Octreotide 500 MCG in Sodium Chloride 0.9% 497.5 ML IV SCH (11:45)
[2023-04-21] MEDS ORDERED: Sodium Chloride 0.9% 1,000 ML IV SCH (13:30)
[2023-04-21 14:10] VITALS: PULSE 98
[2023-04-21 14:19] VITALS: BP 91/29
[2023-04-21] MEDS ORDERED: Pantoprazole 40 MG Vial IVPUSH SCH (15:00)
== END 2023-04-21 14:35 | DRG 441 ==
LOC: JP.ED 19:37 → JP.MS 21:59
PROVIDERS: ADMIT Hospitalist; ATTEND Internal Medicine
PROC: 0W9G3ZZ Drainage of Peritoneal Cavity, Percutaneous Approach (ICD-10-PCS; principal; 2023-04-17)
DX: K76.82 Hepatic encephalopathy (principal); I85.11 Secondary esophageal varices with bleeding; K65.2 Spontaneous bacterial peritonitis; D62 Acute posthemorrhagic anemia; Z91.038 Other insect allergy status; Z88.6 Allergy status to analgesic agent; J21.9 Acute bronchiolitis, unspecified; E11.9 Type 2 diabetes mellitus without complications; K70.31 Alcoholic cirrhosis of liver with ascites; Z79.84 Long term (current) use of oral hypoglycemic drugs; Z86.16 Personal history of COVID-19; K75.81 Nonalcoholic steatohepatitis (NASH); Z20.822 Contact with and (suspected) exposure to COVID-19; I10 Essential (primary) hypertension; K21.9 Gastro-esophageal reflux disease without esophagitis; M19.90 Unspecified osteoarthritis, unspecified site; G89.29 Other chronic pain; M54.9 Dorsalgia, unspecified; E03.9 Hypothyroidism, unspecified; E83.42 Hypomagnesemia; D69.6 Thrombocytopenia, unspecified; F10.10 Alcohol abuse, uncomplicated; Z88.8 Allergy status to other drugs, medicaments and biological substances; Z87.440 Personal history of urinary (tract) infections; Z79.4 Long term (current) use of insulin; Z79.899 Other long term (current) drug therapy; Z79.890 Hormone replacement therapy; Z79.82 Long term (current) use of aspirin; Z98.890 Other specified postprocedural states; Z90.49 Acquired absence of other specified parts of digestive tract; Z87.891 Personal history of nicotine dependence
CPT/HCPCS: 0241U; 36415; 36430; 49083; 74177; 80048; 80053; 81001; 82140; 82947; 83690; 83735; 84443; 85018; 85025; 85027; 85610; 85730; 86850; 86900; 86901; 86920; 86922; 94640; 96360; 97110; 97161; 97530; 99285; A9270-GY; C1729; C9113; J0696; J1815; J1815-GY; J2354-JA; J2405; J3475; J3490; J7030; J7040; P9016; Q9967

== ENCOUNTER 2023-06-05 07:59 | Inpatient (IN) | payer MEDICARE, BC ==
[2023-06-05] MEDS ORDERED: Sodium Chloride 0.9% 1,000 ML IV SCH ×2 (08:15→09:45)
[2023-06-05 08:27] LABS: BASOPHILS PERCENT AUTO 0.3 % (0.1-1.3); EOSINOPHILS ABSOLUTE AUTO 0.09 K/uL (0.00-0.40); EOSINOPHILS PERCENT AUTO 1.5 % (0.0-5.4); HEMATOCRIT 37.7 % (34.3-46.0); IMMATURE GRAN PERCENT AUTO 0.3 % (0.0-0.7); LYMPHOCYTES ABSOLUTE AUTO 1.05 K/uL (0.8-3.3); LYMPHOCYTES PERCENT AUTO 17.3 % (11.4-47.7); MEAN CORPUSCULAR HGB CONC 34.5 g/dL (31.6-35.5); MEAN CORPUSCULAR VOLUME 92.9 fL (81.4-99.0); MONOCYTES ABSOLUTE AUTO 0.56 K/uL (0.20-0.90); MONOCYTES PERCENT AUTO 9.2 % (3.3-12.6); NEUTROPHILS ABSOLUTE AUTO 4.33 K/uL (1.0-7.6); NEUTROPHILS PERCENT AUTO 71.4 % (40.0-78.1); PLATELET COUNT,PLT 101 K/uL (130-375); RED BLOOD CELL COUNT 4.06 M/uL (3.77-5.24); WHITE BLOOD CELL COUNT,WBC 6.1 K/uL (3.2-11.0)
[2023-06-05 08:29] LABS: BASOPHILS ABSOLUTE AUTO 0.02 K/uL (0.00-0.10); IMMATURE GRAN ABSOLUTE AUTO 0.02 K/uL (0.00-0.23)
[2023-06-05 08:54] LABS: A/G RATIO 0.7 (1.2-2.2); ALANINE AMINOTRANSFERASE,ALT 38 U/L (12-78); ALBUMIN 3.2 g/dL (3.4-5.0); ALKALINE PHOSPHATASE 188 U/L (46-116); ASPARTATE AMNIOTRANSFERASE,AST 47 U/L (15-37); BILIRUBIN TOTAL 1.6 mg/dL (0.2-1.0); BLOOD UREA NITROGEN,BUN 43 mg/dL (7-18); CALCIUM 10.1 mg/dL (8.5-10.1); CARBON DIOXIDE,CO2 25 mmol/L (21-32); CHLORIDE,CL 97 mmol/L (100-108); CREATININE 2.4 mg/dL (0.6-1.0); EST CRCL DRUG DOSING (CG) 18.79 mL/min; ESTIMATED GFR 21 mL/min (>60); GLUCOSE RANDOM 152 mg/dL (74-106); POTASSIUM,K 5.3 mmol/L (3.6-5.2); PROTEIN TOTAL,TP 7.9 g/dL (6.4-8.2); SODIUM,NA 131 mmol/L (140-148); TROPONIN I HIGH SENSITIVITY 25.4 pg/mL (<=60.3)
[2023-06-05 08:55] LABS: ANION GAP 14.3 mmol/L (5.0-14.0)
[2023-06-05] MEDS ORDERED: Ondansetron 4 MG/2 ML SDV IVPUSH ONE (09:23)
[2023-06-05 09:44] LABS: APPEARANCE,URINE CLOUDY (CLEAR); BILIRUBIN,URINE NEGATIVE (NEGATIVE); COLOR,URINE YELLOW (YELLOW); GLUCOSE,URINE NEGATIVE (NEGATIVE); KETONES,URINE NEGATIVE (NEGATIVE); LEUKOCYTE ESTERASE,URINE SMALL (NEGATIVE); NITRITE,URINE NEGATIVE (NEGATIVE); OCCULT BLOOD,URINE SMALL (NEGATIVE); PH,URINE 5.5 (5.0-8.0); PROTEIN,URINE NEGATIVE (NEGATIVE); UROBILINOGEN,URINE 0.2 EU/dL (0.2-1.0)
[2023-06-05 09:52] LABS: BACTERIA,URINE NOT SEEN; EPITHELIAL CELLS,URINE FEW; RBC,URINE 0-5 (0-5); WBC,URINE 0-5 (0-5)
[2023-06-05 09:53] LABS: AMORPHOUS SEDIMENT,URINE NOT SEEN; MUCUS,URINE FEW
[2023-06-05 11:17] LABS: CORONAVIRUS COVID-19 NAA NEGATIVE (NEGATIVE); INFLUENZA A NAA NEGATIVE (NEGATIVE); INFLUENZA B NAA NEGATIVE (NEGATIVE); RESPIRATORY SYNCYTIAL VIR NAA NEGATIVE (NEGATIVE)
[2023-06-05] MEDS ORDERED: Ondansetron 4 MG/2 ML SDV IV PRN (11:51)
[2023-06-05] MEDS ORDERED: Polyethylene Glycol 3350 Powder 17 GM Packet PO PRN (11:51)
[2023-06-05] MEDS ORDERED: 50% Dextrose in Water 50 ML Syringe IV PRN (11:51)
[2023-06-05] MEDS ORDERED: Acetaminophen 325 MG Tab PO PRN (11:51)
[2023-06-05] MEDS ORDERED: Glucose Gel 15 GM in 37.5 GM Tube PO PRN (11:51)
[2023-06-05] MEDS ORDERED: Sodium Chloride 0.9% 10 ML Syringe FLUSH PRN (11:51)
[2023-06-05 12:01] LABS: INR 1.2; PROTHROMBIN TIME 12.4 sec (9.2-10.6)
[2023-06-05] MEDS: Lactulose Soln 10 GM/15 ML 15 ML UD Cup PO SCH ×3 (12:25→21:17)
[2023-06-05] MEDS: Insulin Lispro 100 Unit/ML 3 ML KwikPen SUBCUT SCH ×3 (12:26→21:18)
[2023-06-05] MEDS: Sodium Chloride 0.9% 1,000 ML IV SCH (12:59)
[2023-06-05] MEDS: Enoxaparin 30 MG/0.3 ML Syringe SUBCUT SCH (14:21)
[2023-06-05] MEDS ORDERED: Non-Formulary Medication 1 Each (Spironolactone [Spironolactone] 50 MG Tablet) PO SCH (14:45)
[2023-06-05] MEDS ORDERED: Albuterol 6.7 GM Inhaler INH PRN (14:45)
[2023-06-05] MEDS ORDERED: Acyclovir 200 MG Cap PO SCH (18:00)
[2023-06-05] MEDS ORDERED: Sodium Chloride 0.9% 1,000 ML IV ONE (20:06)
[2023-06-05] MEDS ORDERED: Non-Formulary Medication 1 Each (Magnesium Chloride [Mag-64] 64 MG Tab.Er) PO SCH (21:00)
[2023-06-05] MEDS ORDERED: PROPRANOLOL HCL 20 MG PO SCH (21:00)
[2023-06-05] MEDS ORDERED: Non-Formulary Medication 1 Each (Insulin Detemir [Levemir Flexpen] 100 UNIT/ML Insuln.Pen) SQ SCH (21:00)
[2023-06-05] MEDS: Propranolol 40 MG Tab PO SCH (21:18)
[2023-06-05] MEDS: Rifaximin 550 MG Tab PO SCH (21:18)
[2023-06-05] MEDS: Insulin Glargine,Human Rec. Analog 100 Units/ML 3 ML Pen SUBCUT SCH (21:19)
[2023-06-06] MEDS: Sodium Chloride 0.9% 1,000 ML IV SCH (04:33)
[2023-06-06 06:17] LABS: HEMATOCRIT 31.2 % (34.3-46.0); HEMOGLOBIN 10.4 g/dL (11.2-15.5); MEAN CORPUSCULAR HEMOGLOBIN 31.9 pg (31.6-35.5); MEAN CORPUSCULAR HGB CONC 33.3 g/dL (31.6-35.5); MEAN CORPUSCULAR VOLUME 95.7 fL (81.4-99.0); RED BLOOD CELL COUNT 3.26 M/uL (3.77-5.24); WHITE BLOOD CELL COUNT,WBC 3.1 K/uL (3.2-11.0)
[2023-06-06 06:32] LABS: INR 1.4; PROTHROMBIN TIME 13.8 sec (9.2-10.6)
[2023-06-06 06:56] LABS: A/G RATIO 0.6 (1.2-2.2); ALANINE AMINOTRANSFERASE,ALT 30 U/L (12-78); ALBUMIN 2.4 g/dL (3.4-5.0); ALKALINE PHOSPHATASE 140 U/L (46-116); ASPARTATE AMNIOTRANSFERASE,AST 38 U/L (15-37); BLOOD UREA NITROGEN,BUN 31 mg/dL (7-18); CALCIUM 8.3 mg/dL (8.5-10.1); CARBON DIOXIDE,CO2 25 mmol/L (21-32); CHLORIDE,CL 108 mmol/L (100-108); CREATININE 1.8 mg/dL (0.6-1.0); EST CRCL DRUG DOSING (CG) 22.02 mL/min; ESTIMATED GFR 29 mL/min (>60); GLUCOSE RANDOM 109 mg/dL (74-106); MAGNESIUM 1.9 mg/dL (1.8-2.4); POTASSIUM,K 4.4 mmol/L (3.6-5.2); PROTEIN TOTAL,TP 6.3 g/dL (6.4-8.2); SODIUM,NA 138 mmol/L (140-148)
[2023-06-06 07:20] LABS: ANION GAP 9.4 mmol/L (5.0-14.0)
[2023-06-06] MEDS: Insulin Lispro 100 Unit/ML 3 ML KwikPen SUBCUT SCH ×4 (07:26→22:12)
[2023-06-06] MEDS: Pantoprazole 40 MG Tab.CR PO SCH (07:27)
[2023-06-06] MEDS: Levothyroxine 100 MCG, Levothyroxine 25 MCG PO SCH ×2 (07:27)
[2023-06-06] MEDS ORDERED: Non-Formulary Medication 1 Each (Insulin Detemir [Levemir Flextouch] 100 UNIT/ML Insuln.Pe SQ SCH (08:00)
[2023-06-06] MEDS: Lactulose Soln 10 GM/15 ML 15 ML UD Cup PO SCH ×3 (08:19→22:12)
[2023-06-06] MEDS: Propranolol 40 MG Tab PO SCH ×2 (08:19→22:15)
[2023-06-06] MEDS: Losartan 50 MG Tab PO SCH (08:20)
[2023-06-06] MEDS: Magnesium Oxide 400 MG Tab PO SCH (08:20)
[2023-06-06] MEDS: Rifaximin 550 MG Tab PO SCH ×2 (08:20→22:15)
[2023-06-06] MEDS: Aspirin 81 MG Tab.EC PO SCH (08:20)
[2023-06-06] MEDS ORDERED: Levothyroxine 100 MCG Tab PO SCH (09:00)
[2023-06-06] MEDS ORDERED: Non-Formulary Medication 1 Each (Pantoprazole Sodium [Protonix] 20 MG Tablet.Dr) PO SCH (09:00)
[2023-06-06] MEDS ORDERED: NADOLOL 20 MG PO SCH (09:00)
[2023-06-06] MEDS: Insulin Glargine,Human Rec. Analog 100 Units/ML 3 ML Pen SUBCUT SCH ×2 (09:58→22:13)
[2023-06-06] MEDS: Enoxaparin 30 MG/0.3 ML Syringe SUBCUT SCH (13:38)
[2023-06-07 05:27] LABS: CREATININE 1.6 mg/dL (0.6-1.0); EST CRCL DRUG DOSING (CG) 24.77 mL/min; POTASSIUM,K 4.4 mmol/L (3.6-5.2)
[2023-06-07 05:28] LABS: ANION GAP 11.4 mmol/L (5.0-14.0)
[2023-06-07] MEDS: Pantoprazole 40 MG Tab.CR PO SCH (07:51)
[2023-06-07] MEDS: Levothyroxine 100 MCG, Levothyroxine 25 MCG PO SCH ×2 (07:52)
[2023-06-07] MEDS: Insulin Lispro 100 Unit/ML 3 ML KwikPen SUBCUT SCH ×4 (07:53→21:25)
[2023-06-07] MEDS: Lactulose Soln 10 GM/15 ML 15 ML UD Cup PO SCH ×4 (08:49→21:27)
[2023-06-07] MEDS: Aspirin 81 MG Tab.EC PO SCH (08:52)
[2023-06-07] MEDS: Magnesium Oxide 400 MG Tab PO SCH (08:53)
[2023-06-07] MEDS: Rifaximin 550 MG Tab PO SCH ×2 (08:53→21:27)
[2023-06-07] MEDS: Propranolol 40 MG Tab PO SCH ×2 (08:55→21:28)
[2023-06-07] MEDS: Losartan 50 MG Tab PO SCH (08:58)
[2023-06-07] MEDS ORDERED: FLU (Fluad Quad) 2023-24(65UP)/MF59C/PF 60 MCG/0.5 ML Syringe IM ONE (09:00)
[2023-06-07] MEDS: Insulin Glargine,Human Rec. Analog 100 Units/ML 3 ML Pen SUBCUT SCH ×2 (09:01→21:26)
[2023-06-07] MEDS: Furosemide 40 MG Tab PO SCH (13:25)
[2023-06-07] MEDS: Enoxaparin 30 MG/0.3 ML Syringe SUBCUT SCH (13:51)
[2023-06-08 05:03] VITALS: BP 95/44; PULSE 81
[2023-06-08] MEDS: Lactulose Soln 10 GM/15 ML 15 ML UD Cup PO SCH ×2 (05:03→10:32)
[2023-06-08 05:25] LABS: ANION GAP 13.7 mmol/L (5.0-14.0); CREATININE 1.6 mg/dL (0.6-1.0); EST CRCL DRUG DOSING (CG) 24.4 mL/min; POTASSIUM,K 4.7 mmol/L (3.6-5.2)
[2023-06-08] MEDS: Insulin Lispro 100 Unit/ML 3 ML KwikPen SUBCUT SCH (08:01)
[2023-06-08] MEDS: Insulin Glargine,Human Rec. Analog 100 Units/ML 3 ML Pen SUBCUT SCH (08:02)
[2023-06-08] MEDS: Levothyroxine 100 MCG, Levothyroxine 25 MCG PO SCH ×2 (08:02)
[2023-06-08] MEDS: Pantoprazole 40 MG Tab.CR PO SCH (08:02)
[2023-06-08] MEDS: Aspirin 81 MG Tab.EC PO SCH (08:03)
[2023-06-08] MEDS: Magnesium Oxide 400 MG Tab PO SCH (08:03)
[2023-06-08] MEDS: Furosemide 40 MG Tab PO SCH (08:04)
[2023-06-08] MEDS: Rifaximin 550 MG Tab PO SCH (08:04)
[2023-06-08] MEDS: Propranolol 40 MG Tab PO SCH (08:05)
[2023-06-08] MEDS: Losartan 50 MG Tab PO SCH (09:40)
[2023-06-11] MEDS ORDERED: DULAGLUTIDE 4.5 MG/0.5 ML SUBCUT SCH (09:00)
== END 2023-06-08 11:25 | disposition home or self-care (01) | DRG 442 ==
LOC: JP.ED 07:59 → JP.MS 10:17
PROVIDERS: ADMIT Hospitalist; ATTEND Hospitalist
DX: K74.60 Unspecified cirrhosis of liver (principal); R41.0 Disorientation, unspecified; K76.82 Hepatic encephalopathy; I10 Essential (primary) hypertension; N17.9 Acute kidney failure, unspecified; K70.31 Alcoholic cirrhosis of liver with ascites; K75.81 Nonalcoholic steatohepatitis (NASH); E11.9 Type 2 diabetes mellitus without complications; Z91.038 Other insect allergy status; E86.0 Dehydration; E03.9 Hypothyroidism, unspecified; M19.90 Unspecified osteoarthritis, unspecified site; K21.9 Gastro-esophageal reflux disease without esophagitis; G89.29 Other chronic pain; M54.9 Dorsalgia, unspecified; Z86.16 Personal history of COVID-19; Z79.4 Long term (current) use of insulin; Z79.82 Long term (current) use of aspirin; Z79.890 Hormone replacement therapy; Z79.84 Long term (current) use of oral hypoglycemic drugs; Z91.030 Bee allergy status; Z88.6 Allergy status to analgesic agent; Z90.49 Acquired absence of other specified parts of digestive tract; Z90.89 Acquired absence of other organs; Z98.51 Tubal ligation status; Z88.8 Allergy status to other drugs, medicaments and biological substances; Z79.899 Other long term (current) drug therapy
CPT/HCPCS: 0241U; 36415; 70450; 80048; 80053; 81001; 82140; 82947; 83605; 83735; 84484; 85025; 85027; 85610; 93005; 97116; 97161; 97530; 96361; 96374; 99285-25; A9270-GY; J1650; J1815; J1815-GY; J2405; J7030

== ENCOUNTER 2023-07-11 15:50 | Inpatient (IN) | payer MEDICARE, BC ==
[2023-07-11] MEDS ORDERED: Sodium Chloride 0.9% 10 ML Syringe FLUSH PRN (16:28)
[2023-07-11 16:59] LABS: BASOPHILS PERCENT AUTO 0.3 % (0.1-1.3); EOSINOPHILS ABSOLUTE AUTO 0.07 K/uL (0.00-0.40); EOSINOPHILS PERCENT AUTO 1.2 % (0.0-5.4); HEMATOCRIT 40.5 % (34.3-46.0); HEMOGLOBIN 14.1 g/dL (11.2-15.5); IMMATURE GRAN ABSOLUTE AUTO 0.03 K/uL (0.00-0.23); IMMATURE GRAN PERCENT AUTO 0.5 % (0.0-0.7); LYMPHOCYTES ABSOLUTE AUTO 0.85 K/uL (0.8-3.3); LYMPHOCYTES PERCENT AUTO 14.5 % (11.4-47.7); MEAN CORPUSCULAR HEMOGLOBIN 32.9 pg (31.6-35.5); MEAN CORPUSCULAR HGB CONC 34.8 g/dL (31.6-35.5); MEAN CORPUSCULAR VOLUME 94.6 fL (81.4-99.0); MONOCYTES ABSOLUTE AUTO 0.59 K/uL (0.20-0.90); MONOCYTES PERCENT AUTO 10.1 % (3.3-12.6); NEUTROPHILS ABSOLUTE AUTO 4.31 K/uL (1.0-7.6); NEUTROPHILS PERCENT AUTO 73.4 % (40.0-78.1); RED BLOOD CELL COUNT 4.28 M/uL (3.77-5.24); WHITE BLOOD CELL COUNT,WBC 5.9 K/uL (3.2-11.0)
[2023-07-11 17:01] LABS: BASOPHILS ABSOLUTE AUTO 0.02 K/uL (0.00-0.10); PLATELET COUNT,PLT 95 K/uL (130-375)
[2023-07-11 17:15] LABS: INR 1.2; PROTHROMBIN TIME 12.1 sec (9.2-10.6); PTT,PARTIAL THROMBOPLSTIN TIME 19.2 sec (21.8-27.3)
[2023-07-11 17:25] LABS: A/G RATIO 0.7 (1.2-2.2); ALANINE AMINOTRANSFERASE,ALT 51 U/L (12-78); ALBUMIN 3.2 g/dL (3.4-5.0); ALKALINE PHOSPHATASE 190 U/L (46-116); ASPARTATE AMNIOTRANSFERASE,AST 43 U/L (15-37); BILIRUBIN TOTAL 1.8 mg/dL (0.2-1.0); BLOOD UREA NITROGEN,BUN 50 mg/dL (7-18); CALCIUM 11.9 mg/dL (8.5-10.1); CARBON DIOXIDE,CO2 25 mmol/L (21-32); CHLORIDE,CL 95 mmol/L (100-108); CREATININE 2.2 mg/dL (0.6-1.0); EST CRCL DRUG DOSING (CG) 17.74 mL/min; ESTIMATED GFR 23 mL/min (>60); GLUCOSE RANDOM 400 mg/dL (74-106); POTASSIUM,K 5.3 mmol/L (3.6-5.2); SODIUM,NA 130 mmol/L (140-148)
[2023-07-11 17:27] LABS: ANION GAP 15.3 mmol/L (5.0-14.0)
[2023-07-11 18:01] LABS: APPEARANCE,URINE SLIGHTLY CLOUDY (CLEAR); BILIRUBIN,URINE NEGATIVE (NEGATIVE); COLOR,URINE YELLOW (YELLOW); GLUCOSE,URINE NEGATIVE (NEGATIVE); KETONES,URINE NEGATIVE (NEGATIVE); LEUKOCYTE ESTERASE,URINE MODERATE (NEGATIVE); NITRITE,URINE NEGATIVE (NEGATIVE); OCCULT BLOOD,URINE TRACE-INTACT (NEGATIVE); PH,URINE 5.5 (5.0-8.0); PROTEIN,URINE NEGATIVE (NEGATIVE); UROBILINOGEN,URINE 0.2 EU/dL (0.2-1.0)
[2023-07-11 18:08] LABS: EPITHELIAL CELLS,URINE FEW; RBC,URINE SEMI-PACKED (0-5); WBC,URINE SEMI-PACKED (0-5)
[2023-07-11 18:09] LABS: AMORPHOUS SEDIMENT,URINE NOT SEEN; BACTERIA,URINE MODERATE; MUCUS,URINE NOT SEEN
[2023-07-11] MEDS ORDERED: Sodium Chloride 0.9% 1,000 ML IV ONE ×2 (19:18)
[2023-07-11] MEDS ORDERED: cefTRIAXone 1 GM in Sodium Chloride 0.9% 50 ML IV ONE (20:06)
[2023-07-12 01:06] LABS: CORONAVIRUS COVID-19 NAA NEGATIVE (NEGATIVE); INFLUENZA A NAA NEGATIVE (NEGATIVE); INFLUENZA B NAA NEGATIVE (NEGATIVE); RESPIRATORY SYNCYTIAL VIR NAA NEGATIVE (NEGATIVE)
[2023-07-12] MEDS ORDERED: Furosemide 40 MG Tab PO SCH (02:14)
[2023-07-12] MEDS ORDERED: Albuterol 6.7 GM Inhaler INH PRN (02:14)
[2023-07-12] MEDS ORDERED: EPINEPHrine 1 MG/ML SDV IM PRN (02:28)
[2023-07-12] MEDS: Lactulose Soln 10 GM/15 ML 15 ML UD Cup PO SCH ×3 (02:32→21:02)
[2023-07-12] MEDS ORDERED: Ondansetron 4 MG Tab.DIS PO PRN (02:46)
[2023-07-12] MEDS: Sodium Chloride 0.9% 1,000 ML IV SCH ×3 (02:58→17:24)
[2023-07-12 06:21] LABS: BASOPHILS PERCENT AUTO 0.4 % (0.1-1.3); EOSINOPHILS ABSOLUTE AUTO 0.07 K/uL (0.00-0.40); EOSINOPHILS PERCENT AUTO 1.5 % (0.0-5.4); HEMATOCRIT 33.8 % (34.3-46.0); HEMOGLOBIN 11.5 g/dL (11.2-15.5); IMMATURE GRAN PERCENT AUTO 0.4 % (0.0-0.7); LYMPHOCYTES PERCENT AUTO 22.9 % (11.4-47.7); MEAN CORPUSCULAR HEMOGLOBIN 33.2 pg (31.6-35.5); MEAN CORPUSCULAR VOLUME 97.7 fL (81.4-99.0); MONOCYTES ABSOLUTE AUTO 0.67 K/uL (0.20-0.90); NEUTROPHILS ABSOLUTE AUTO 2.92 K/uL (1.0-7.6); NEUTROPHILS PERCENT AUTO 60.8 % (40.0-78.1); PLATELET COUNT,PLT 67 K/uL (130-375); RED BLOOD CELL COUNT 3.46 M/uL (3.77-5.24); WHITE BLOOD CELL COUNT,WBC 4.8 K/uL (3.2-11.0)
[2023-07-12 06:35] LABS: ANION GAP 12.8 mmol/L (5.0-14.0); CALCIUM 10.3 mg/dL (8.5-10.1); EST CRCL DRUG DOSING (CG) 19.52 mL/min; MAGNESIUM 1.9 mg/dL (1.8-2.4); POTASSIUM,K 4.8 mmol/L (3.6-5.2)
[2023-07-12 06:38] LABS: BASOPHILS ABSOLUTE AUTO 0.02 K/uL (0.00-0.10); IMMATURE GRAN ABSOLUTE AUTO 0.02 K/uL (0.00-0.23)
[2023-07-12] MEDS ORDERED: Levothyroxine 50 MCG Tab PO SCH (07:30)
[2023-07-12] MEDS ORDERED: Non-Formulary Medication 1 Each (Insulin Detemir [Levemir Flextouch] 100 UNIT/ML Insuln.Pe SQ SCH (08:00)
[2023-07-12] MEDS: Insulin Lispro 100 Unit/ML 3 ML KwikPen SUBCUT SCH ×4 (08:21→21:00)
[2023-07-12] MEDS: Levothyroxine 100 MCG, Levothyroxine 25 MCG PO SCH ×2 (08:23)
[2023-07-12] MEDS: Spironolactone 25 MG Tab PO SCH ×2 (08:23→12:32)
[2023-07-12] MEDS: Pantoprazole 40 MG Tab.CR PO SCH (08:23)
[2023-07-12] MEDS: Aspirin 81 MG Tab.EC PO SCH (08:24)
[2023-07-12] MEDS: Magnesium Oxide 400 MG Tab PO SCH ×2 (08:24→21:03)
[2023-07-12] MEDS: Cholecalciferol (Vitamin D3) 25 MCG Tab PO SCH (08:24)
[2023-07-12] MEDS: Rifaximin 550 MG Tab PO SCH ×2 (08:24→21:03)
[2023-07-12] MEDS: Insulin Glargine,Human Rec. Analog 100 Units/ML 3 ML Pen SUBCUT SCH ×2 (08:26→21:01)
[2023-07-12] MEDS: Calcium Carbonate 500 MG Tab.Chew PO SCH (08:27)
[2023-07-12] MEDS: Propranolol 40 MG Tab PO SCH ×2 (08:29→21:03)
[2023-07-12] MEDS: Losartan 50 MG Tab PO SCH (08:29)
[2023-07-12] MEDS ORDERED: FLU (Fluad Quad) 2023-24(65UP)/MF59C/PF 60 MCG/0.5 ML Syringe IM ONE (10:00)
[2023-07-12] MEDS: cefTRIAXone 1 GM in Sodium Chloride 0.9% 50 ML IV SCH (21:03)
[2023-07-13] MEDS: Sodium Chloride 0.9% 1,000 ML IV SCH (02:51)
[2023-07-13 05:18] LABS: BASOPHILS PERCENT AUTO 0.6 % (0.1-1.3); EOSINOPHILS ABSOLUTE AUTO 0.06 K/uL (0.00-0.40); EOSINOPHILS PERCENT AUTO 1.9 % (0.0-5.4); HEMATOCRIT 30.6 % (34.3-46.0); IMMATURE GRAN PERCENT AUTO 0.3 % (0.0-0.7); LYMPHOCYTES ABSOLUTE AUTO 0.71 K/uL (0.8-3.3); LYMPHOCYTES PERCENT AUTO 22.9 % (11.4-47.7); MEAN CORPUSCULAR HEMOGLOBIN 33.1 pg (31.6-35.5); MEAN CORPUSCULAR HGB CONC 32.7 g/dL (31.6-35.5); MEAN CORPUSCULAR VOLUME 101.3 fL (81.4-99.0); MONOCYTES ABSOLUTE AUTO 0.47 K/uL (0.20-0.90); MONOCYTES PERCENT AUTO 15.2 % (3.3-12.6); NEUTROPHILS ABSOLUTE AUTO 1.83 K/uL (1.0-7.6); NEUTROPHILS PERCENT AUTO 59.1 % (40.0-78.1); PLATELET COUNT,PLT 56 K/uL (130-375); RED BLOOD CELL COUNT 3.02 M/uL (3.77-5.24); WHITE BLOOD CELL COUNT,WBC 3.1 K/uL (3.2-11.0)
[2023-07-13 05:20] LABS: BASOPHILS ABSOLUTE AUTO 0.02 K/uL (0.00-0.10); IMMATURE GRAN ABSOLUTE AUTO 0.01 K/uL (0.00-0.23)
[2023-07-13 05:55] LABS: A/G RATIO 0.6 (1.2-2.2); ALANINE AMINOTRANSFERASE,ALT 33 U/L (12-78); ALBUMIN 2.1 g/dL (3.4-5.0); ALKALINE PHOSPHATASE 150 U/L (46-116); ASPARTATE AMNIOTRANSFERASE,AST 31 U/L (15-37); BILIRUBIN TOTAL 0.5 mg/dL (0.2-1.0); BLOOD UREA NITROGEN,BUN 41 mg/dL (7-18); CALCIUM 8.8 mg/dL (8.5-10.1); CARBON DIOXIDE,CO2 25 mmol/L (21-32); CHLORIDE,CL 109 mmol/L (100-108); CREATININE 1.7 mg/dL (0.6-1.0); EST CRCL DRUG DOSING (CG) 22.96 mL/min; ESTIMATED GFR 31 mL/min (>60); GLUCOSE RANDOM 255 mg/dL (74-106); POTASSIUM,K 4.8 mmol/L (3.6-5.2); PROTEIN TOTAL,TP 5.6 g/dL (6.4-8.2); SODIUM,NA 139 mmol/L (140-148)
[2023-07-13 06:01] LABS: ANION GAP 9.8 mmol/L (5.0-14.0)
[2023-07-13] MEDS: Cholecalciferol (Vitamin D3) 25 MCG Tab PO SCH (08:11)
[2023-07-13] MEDS: Calcium Carbonate 500 MG Tab.Chew PO SCH (08:12)
[2023-07-13] MEDS: Pantoprazole 40 MG Tab.CR PO SCH (08:12)
[2023-07-13] MEDS: Magnesium Oxide 400 MG Tab PO SCH ×2 (08:12→21:41)
[2023-07-13] MEDS: Lactulose Soln 10 GM/15 ML 15 ML UD Cup PO SCH ×2 (08:12→21:41)
[2023-07-13] MEDS: Aspirin 81 MG Tab.EC PO SCH (08:13)
[2023-07-13] MEDS: Levothyroxine 100 MCG, Levothyroxine 25 MCG PO SCH ×2 (08:13)
[2023-07-13] MEDS: Rifaximin 550 MG Tab PO SCH ×2 (08:14→21:41)
[2023-07-13] MEDS: Spironolactone 25 MG Tab PO SCH ×2 (08:14→14:53)
[2023-07-13] MEDS: Insulin Glargine,Human Rec. Analog 100 Units/ML 3 ML Pen SUBCUT SCH ×2 (08:15→21:42)
[2023-07-13] MEDS: Insulin Lispro 100 Unit/ML 3 ML KwikPen SUBCUT SCH ×4 (08:16→21:41)
[2023-07-13] MEDS: Propranolol 40 MG Tab PO SCH ×2 (11:54→21:41)
[2023-07-13] MEDS: Losartan 50 MG Tab PO SCH (11:54)
[2023-07-13] MEDS: cefTRIAXone 1 GM in Sodium Chloride 0.9% 50 ML IV SCH (22:38)
[2023-07-14 04:15] LABS: HEMATOCRIT 30.9 % (34.3-46.0); HEMOGLOBIN 10.3 g/dL (11.2-15.5); MEAN CORPUSCULAR HEMOGLOBIN 33.1 pg (31.6-35.5); MEAN CORPUSCULAR HGB CONC 33.3 g/dL (31.6-35.5); MEAN CORPUSCULAR VOLUME 99.4 fL (81.4-99.0); RED BLOOD CELL COUNT 3.11 M/uL (3.77-5.24)
[2023-07-14] MEDS: Spironolactone 25 MG Tab PO SCH ×2 (08:19→13:50)
[2023-07-14] MEDS: Calcium Carbonate 500 MG Tab.Chew PO SCH (08:19)
[2023-07-14] MEDS: Magnesium Oxide 400 MG Tab PO SCH ×2 (08:19→20:42)
[2023-07-14] MEDS: Lactulose Soln 10 GM/15 ML 15 ML UD Cup PO SCH ×2 (08:19→20:42)
[2023-07-14] MEDS: Cholecalciferol (Vitamin D3) 25 MCG Tab PO SCH (08:19)
[2023-07-14] MEDS: Losartan 50 MG Tab PO SCH (08:20)
[2023-07-14] MEDS: Pantoprazole 40 MG Tab.CR PO SCH (08:20)
[2023-07-14] MEDS: Aspirin 81 MG Tab.EC PO SCH (08:20)
[2023-07-14] MEDS: Rifaximin 550 MG Tab PO SCH ×2 (08:20→20:42)
[2023-07-14] MEDS: Propranolol 40 MG Tab PO SCH ×2 (08:21→20:42)
[2023-07-14] MEDS: Insulin Lispro 100 Unit/ML 3 ML KwikPen SUBCUT SCH ×4 (08:21→21:03)
[2023-07-14] MEDS: Insulin Glargine,Human Rec. Analog 100 Units/ML 3 ML Pen SUBCUT SCH ×2 (08:22→21:00)
[2023-07-14] MEDS: Levothyroxine 100 MCG, Levothyroxine 25 MCG PO SCH ×2 (08:23)
[2023-07-14] MEDS ORDERED: Cefdinir 300 MG Cap PO ONE (21:00)
[2023-07-15] MEDS: Rifaximin 550 MG Tab PO SCH (08:06)
[2023-07-15] MEDS: Lactulose Soln 10 GM/15 ML 15 ML UD Cup PO SCH (08:06)
[2023-07-15] MEDS: Magnesium Oxide 400 MG Tab PO SCH (08:06)
[2023-07-15] MEDS: Pantoprazole 40 MG Tab.CR PO SCH (08:07)
[2023-07-15] MEDS: Spironolactone 25 MG Tab PO SCH (08:07)
[2023-07-15] MEDS: Levothyroxine 100 MCG, Levothyroxine 25 MCG PO SCH ×2 (08:07)
[2023-07-15] MEDS: Aspirin 81 MG Tab.EC PO SCH (08:08)
[2023-07-15] MEDS: Calcium Carbonate 500 MG Tab.Chew PO SCH (08:08)
[2023-07-15] MEDS: Insulin Glargine,Human Rec. Analog 100 Units/ML 3 ML Pen SUBCUT SCH (08:09)
[2023-07-15] MEDS: Cholecalciferol (Vitamin D3) 25 MCG Tab PO SCH (08:09)
[2023-07-15 08:16] VITALS: BP 112/39; PULSE 72
[2023-07-15] MEDS: Insulin Lispro 100 Unit/ML 3 ML KwikPen SUBCUT SCH ×2 (08:16→12:51)
[2023-07-15] MEDS ORDERED: Cefdinir 300 MG Cap PO SCH (09:00)
[2023-07-15] MEDS ORDERED: metFORMIN 500 MG Tab PO SCH (09:00)
[2023-07-15] MEDS: Propranolol 40 MG Tab PO SCH (10:13)
[2023-07-15] MEDS: Losartan 50 MG Tab PO SCH (10:36)
[2023-07-16] MEDS ORDERED: DULAGLUTIDE 4.5 MG/0.5 ML SUBCUT SCH (09:00)
== END 2023-07-15 12:51 | disposition home or self-care (01) | DRG 872 ==
LOC: JP.ED 15:50 → JP.MS 07-12 00:31
PROVIDERS: ADMIT Internal Medicine; ATTEND Internal Medicine
DX: R41.82 Altered mental status, unspecified (principal); A41.9 Sepsis, unspecified organism; N17.9 Acute kidney failure, unspecified; E72.20 Disorder of urea cycle metabolism, unspecified; E87.1 Hypo-osmolality and hyponatremia; G93.49 Other encephalopathy; N30.00 Acute cystitis without hematuria; N18.32 Chronic kidney disease, stage 3b; K74.60 Unspecified cirrhosis of liver; I12.9 Hypertensive chronic kidney disease with stage 1 through stage 4 chronic kidney disease, or unspecified chronic kidney disease; K21.9 Gastro-esophageal reflux disease without esophagitis; I13.10 Hypertensive heart and chronic kidney disease without heart failure, with stage 1 through stage 4 chronic kidney disease, or unspecified chronic kidney disease; R10.84 Generalized abdominal pain; M19.90 Unspecified osteoarthritis, unspecified site; G89.29 Other chronic pain; E11.65 Type 2 diabetes mellitus with hyperglycemia; Z86.16 Personal history of COVID-19; M54.9 Dorsalgia, unspecified; D69.6 Thrombocytopenia, unspecified; E03.9 Hypothyroidism, unspecified; E83.52 Hypercalcemia; Z88.8 Allergy status to other drugs, medicaments and biological substances; E11.22 Type 2 diabetes mellitus with diabetic chronic kidney disease; K76.82 Hepatic encephalopathy; K75.81 Nonalcoholic steatohepatitis (NASH); E86.0 Dehydration; I95.9 Hypotension, unspecified; Z79.82 Long term (current) use of aspirin; Z79.899 Other long term (current) drug therapy; Z79.4 Long term (current) use of insulin; Z79.84 Long term (current) use of oral hypoglycemic drugs; Z91.030 Bee allergy status; Z90.49 Acquired absence of other specified parts of digestive tract; Z98.51 Tubal ligation status; Z98.890 Other specified postprocedural states; Z87.891 Personal history of nicotine dependence; Z11.52 Encounter for screening for COVID-19
CPT/HCPCS: 0241U; 36415; 70450; 74176; 80048; 80053; 81001; 82009; 82140; 82800; 82947; 83605; 83690; 83735; 85025; 85027; 85610; 85730; 87086; 90694; 93005; 96365; 97161; 97530; 99285; 93010; 99223; 99232; 99233; 99238; A9270-GY; G0008; J0696; J1815; J1815-GY; J3490; J7030

== ENCOUNTER 2023-08-03 14:21 | Emergency (ER) | payer MEDICARE, BC ==
[2023-08-03] MEDS ORDERED: Sodium Chloride 0.9% 10 ML Syringe FLUSH PRN (14:44)
[2023-08-03] MEDS ORDERED: Sodium Polystyrene Sulfonate 15 GM/60 ML Susp 60 ML Bot PO ONE (14:50)
[2023-08-03] MEDS ORDERED: Insulin Regular, Human 100 Units/ML 3 ML Vial SUBCUT ONE (14:50)
[2023-08-03] MEDS ORDERED: Calcium Gluconate 10% 1 GM/10 ML SDV IVPUSH ONE (14:50)
[2023-08-03] MEDS ORDERED: Albuterol 0.083% 2.5 MG/3 ML Neb Soln NEB ONE ×2 (14:50→14:52)
[2023-08-03 15:05] LABS: BASOPHILS ABSOLUTE AUTO 0.03 K/uL (0.00-0.10); BASOPHILS PERCENT AUTO 0.5 % (0.1-1.3); EOSINOPHILS ABSOLUTE AUTO 0.04 K/uL (0.00-0.40); EOSINOPHILS PERCENT AUTO 0.7 % (0.0-5.4); HEMATOCRIT 36.9 % (34.3-46.0); HEMOGLOBIN 12.8 g/dL (11.2-15.5); IMMATURE GRAN ABSOLUTE AUTO 0.03 K/uL (0.00-0.23); IMMATURE GRAN PERCENT AUTO 0.5 % (0.0-0.7); LYMPHOCYTES ABSOLUTE AUTO 0.68 K/uL (0.8-3.3); LYMPHOCYTES PERCENT AUTO 12.4 % (11.4-47.7); MEAN CORPUSCULAR HEMOGLOBIN 33.7 pg (31.6-35.5); MEAN CORPUSCULAR HGB CONC 34.7 g/dL (31.6-35.5); MEAN CORPUSCULAR VOLUME 97.1 fL (81.4-99.0); MONOCYTES ABSOLUTE AUTO 0.57 K/uL (0.20-0.90); MONOCYTES PERCENT AUTO 10.4 % (3.3-12.6); NEUTROPHILS ABSOLUTE AUTO 4.12 K/uL (1.0-7.6); NEUTROPHILS PERCENT AUTO 75.5 % (40.0-78.1); PLATELET COUNT,PLT 124 K/uL (130-375); WHITE BLOOD CELL COUNT,WBC 5.5 K/uL (3.2-11.0)
[2023-08-03] MEDS ORDERED: Ondansetron 4 MG Tab.DIS PO ONE (15:19)
[2023-08-03 15:26] LABS: A/G RATIO 0.7 (1.2-2.2); ALANINE AMINOTRANSFERASE,ALT 53 U/L (12-78); ALBUMIN 3.1 g/dL (3.4-5.0); ALKALINE PHOSPHATASE 189 U/L (46-116); ASPARTATE AMNIOTRANSFERASE,AST 54 U/L (15-37); BILIRUBIN TOTAL 1.7 mg/dL (0.2-1.0); BLOOD UREA NITROGEN,BUN 61 mg/dL (7-18); CALCIUM 11.2 mg/dL (8.5-10.1); CARBON DIOXIDE,CO2 26 mmol/L (21-32); CHLORIDE,CL 88 mmol/L (100-108); ESTIMATED GFR 11 mL/min (>60); GLUCOSE RANDOM 381 mg/dL (74-106); PROTEIN TOTAL,TP 7.7 g/dL (6.4-8.2)
[2023-08-03 15:29] LABS: ANION GAP 10.7 mmol/L (5.0-14.0); POTASSIUM,K 7.7 mmol/L (3.6-5.2); SODIUM,NA 117 mmol/L (140-148)
[2023-08-03 15:31] LABS: BICARBONATE,ARTERIAL 20.6 mmol/L (22.0-26.0); CARBOXYHEMOGLOBIN 1.9 % (0.0-1.6); METHEMOGLOBIN 0.6 %; O2 SATURATION ARTERIAL 96.3 % (95.0-98.0); OXYHEMOGLOBIN 93.9 %; PCO2 ARTERIAL 34.3 mmHg (35.0-42.0); PO2 ARTERIAL 84.4 mmHg (75.0-100.0); TOTAL HEMOGLOBIN 12.6 g/dL (12.0-16.0)
[2023-08-03] MEDS ORDERED: Sodium Chloride 0.9% 1,000 ML IV ONE (15:32)
[2023-08-03] MEDS ORDERED: Furosemide 40 MG/4 ML VIAL IVPUSH ONE (16:20)
[2023-08-03 16:31] LABS: CALCIUM 11.5 mg/dL (8.5-10.1); EST CRCL DRUG DOSING (CG) 9.76 mL/min
[2023-08-03 16:33] LABS: ANION GAP 15.7 mmol/L (5.0-14.0); POTASSIUM,K 7.7 mmol/L (3.6-5.2)
[2023-08-03 16:58] VITALS: BP 131/46; PULSE 90
== END 2023-08-03 17:25 ==
LOC: JP.ED 14:21
DX: E87.5 Hyperkalemia (principal); E87.1 Hypo-osmolality and hyponatremia; N17.9 Acute kidney failure, unspecified; I10 Essential (primary) hypertension; E11.9 Type 2 diabetes mellitus without complications; E03.9 Hypothyroidism, unspecified; K21.9 Gastro-esophageal reflux disease without esophagitis; Z86.16 Personal history of COVID-19; Z79.4 Long term (current) use of insulin; Z79.899 Other long term (current) drug therapy; Z79.84 Long term (current) use of oral hypoglycemic drugs; Z79.82 Long term (current) use of aspirin; Z91.030 Bee allergy status; Z88.6 Allergy status to analgesic agent; Z88.8 Allergy status to other drugs, medicaments and biological substances
CPT/HCPCS: 36415; 36600; 51702; 80048; 80053; 82140; 82803; 85025; 93005; 94640; 96361; 96365; 96375; 99285; A9270; J0612; J1815; J1940; J3490; J7030; Q0162

== ENCOUNTER 2023-09-17 10:15 | Inpatient (IN) | payer MEDICARE, BC ==
[2023-09-17 10:39] LABS: BASE EXCESS VENOUS 3.4 mm/L; CARBOXYHEMOGLOBIN 2.3 % (0.0-1.6); METHEMOGLOBIN 0.9 %; O2 SATURATION VENOUS 65.7; OXYHEMOGLOBIN 63.6 %; PCO2 VENOUS 38.7 mm/Hg; PH,VENOUS 7.458 (7.350-7.450)
[2023-09-17 10:40] LABS: BASOPHILS PERCENT AUTO 0.4 % (0.1-1.3); EOSINOPHILS ABSOLUTE AUTO 0.04 K/uL (0.00-0.40); EOSINOPHILS PERCENT AUTO 0.9 % (0.0-5.4); HEMATOCRIT 33.9 % (34.3-46.0); HEMOGLOBIN 11.5 g/dL (11.2-15.5); IMMATURE GRAN PERCENT AUTO 0.4 % (0.0-0.7); LYMPHOCYTES ABSOLUTE AUTO 0.48 K/uL (0.8-3.3); LYMPHOCYTES PERCENT AUTO 10.4 % (11.4-47.7); MEAN CORPUSCULAR HEMOGLOBIN 33.6 pg (31.6-35.5); MEAN CORPUSCULAR HGB CONC 33.9 g/dL (31.6-35.5); MEAN CORPUSCULAR VOLUME 99.1 fL (81.4-99.0); MONOCYTES ABSOLUTE AUTO 0.42 K/uL (0.20-0.90); MONOCYTES PERCENT AUTO 9.1 % (3.3-12.6); NEUTROPHILS ABSOLUTE AUTO 3.63 K/uL (1.0-7.6); NEUTROPHILS PERCENT AUTO 78.8 % (40.0-78.1); PLATELET COUNT,PLT 73 K/uL (130-375); RED BLOOD CELL COUNT 3.42 M/uL (3.77-5.24); WHITE BLOOD CELL COUNT,WBC 4.6 K/uL (3.2-11.0)
[2023-09-17 10:43] LABS: BASOPHILS ABSOLUTE AUTO 0.02 K/uL (0.00-0.10); IMMATURE GRAN ABSOLUTE AUTO 0.02 K/uL (0.00-0.23); PO2 VENOUS 34.6 mm/Hg
[2023-09-17] MEDS: Sodium Chloride 0.9% 1,000 ML IV ONE (10:47)
[2023-09-17 10:56] LABS: APPEARANCE,URINE CLEAR (CLEAR); BILIRUBIN,URINE NEGATIVE (NEGATIVE); COLOR,URINE YELLOW (YELLOW); GLUCOSE,URINE 100 mg/dL (NEGATIVE); KETONES,URINE NEGATIVE (NEGATIVE); LEUKOCYTE ESTERASE,URINE TRACE (NEGATIVE); NITRITE,URINE NEGATIVE (NEGATIVE); OCCULT BLOOD,URINE TRACE-LYSED (NEGATIVE); PH,URINE 5.5 (5.0-8.0); PROTEIN,URINE NEGATIVE (NEGATIVE); UROBILINOGEN,URINE 0.2 EU/dL (0.2-1.0)
[2023-09-17 11:03] LABS: AMORPHOUS SEDIMENT,URINE MODERATE; BACTERIA,URINE NOT SEEN; EPITHELIAL CELLS,URINE FEW; MUCUS,URINE MODERATE; RBC,URINE 0-5 (0-5); WBC,URINE 0-5 (0-5)
[2023-09-17 11:05] LABS: A/G RATIO 0.6 (1.2-2.2); ALANINE AMINOTRANSFERASE,ALT 48 U/L (12-78); ALBUMIN 2.7 g/dL (3.4-5.0); ALKALINE PHOSPHATASE 261 U/L (46-116); ASPARTATE AMNIOTRANSFERASE,AST 41 U/L (15-37); BILIRUBIN TOTAL 1.9 mg/dL (0.2-1.0); BLOOD UREA NITROGEN,BUN 27 mg/dL (7-18); CALCIUM 9.9 mg/dL (8.5-10.1); CARBON DIOXIDE,CO2 26 mmol/L (21-32); CHLORIDE,CL 98 mmol/L (100-108); CREATININE 1.8 mg/dL (0.6-1.0); EST CRCL DRUG DOSING (CG) 21.69 mL/min; ESTIMATED GFR 29 mL/min (>60); GLUCOSE RANDOM 270 mg/dL (74-106); POTASSIUM,K 4.5 mmol/L (3.6-5.2); PROTEIN TOTAL,TP 7.2 g/dL (6.4-8.2); SODIUM,NA 135 mmol/L (140-148)
[2023-09-17 11:08] LABS: ANION GAP 15.5 mmol/L (5.0-14.0)
[2023-09-17 11:20] LABS: CORONAVIRUS COVID-19 NAA NEGATIVE (NEGATIVE); INFLUENZA A NAA NEGATIVE (NEGATIVE); INFLUENZA B NAA NEGATIVE (NEGATIVE); RESPIRATORY SYNCYTIAL VIR NAA NEGATIVE (NEGATIVE)
[2023-09-17] MEDS: Lactulose Soln 10 GM/15 ML 15 ML UD Cup PO ONE (13:23)
[2023-09-17] MEDS: Sodium Chloride 0.9% 1,000 ML IV SCH ×2 (13:24→19:29)
[2023-09-17] MEDS: cefTRIAXone 2 GM in Sodium Chloride 0.9% 50 ML IV SCH (13:52)
[2023-09-17] MEDS ORDERED: Ondansetron 4 MG Tab.DIS PO PRN (14:12)
[2023-09-17] MEDS ORDERED: Albuterol 0.083% 2.5 MG/3 ML Neb Soln NEB PRN (14:12)
[2023-09-17] MEDS ORDERED: oxyCODONE 5 MG Tab PO PRN (14:12)
[2023-09-17] MEDS ORDERED: Ondansetron 4 MG/2 ML SDV IV PRN (14:12)
[2023-09-17] MEDS: Insulin Lispro 100 Unit/ML 3 ML KwikPen SUBCUT SCH (17:03)
[2023-09-17] MEDS: Sodium Chloride 0.9% 500 ML IV ONE (20:13)
[2023-09-17] MEDS: Rifaximin 550 MG Tab PO SCH (20:14)
[2023-09-17] MEDS: Melatonin 3 MG Tab PO SCH (20:14)
[2023-09-17] MEDS: Lactulose Soln 10 GM/15 ML 15 ML UD Cup PO SCH (20:14)
[2023-09-17] MEDS: Lactobacillus Rhamnosus GG (Probiotic) Cap PO SCH (20:14)
[2023-09-17] MEDS: Insulin Glargine,Human Rec. Analog 100 Units/ML 3 ML Pen SUBCUT SCH (21:02)
[2023-09-18 04:42] LABS: HEMATOCRIT 28.7 % (34.3-46.0); HEMOGLOBIN 9.7 g/dL (11.2-15.5); MEAN CORPUSCULAR HEMOGLOBIN 33.9 pg (31.6-35.5); MEAN CORPUSCULAR HGB CONC 33.8 g/dL (31.6-35.5); MEAN CORPUSCULAR VOLUME 100.3 fL (81.4-99.0); RED BLOOD CELL COUNT 2.86 M/uL (3.77-5.24)
[2023-09-18 05:01] LABS: CALCIUM 8.7 mg/dL (8.5-10.1); CREATININE 1.3 mg/dL (0.6-1.0); EST CRCL DRUG DOSING (CG) 30.03 mL/min; MAGNESIUM 1.8 mg/dL (1.8-2.4); POTASSIUM,K 3.9 mmol/L (3.6-5.2)
[2023-09-18 05:16] LABS: ANION GAP 9.9 mmol/L (5.0-14.0)
[2023-09-18] MEDS: Insulin Glargine,Human Rec. Analog 100 Units/ML 3 ML Pen SUBCUT SCH (07:47)
[2023-09-18] MEDS: Pantoprazole 40 MG Tab.CR PO SCH (07:51)
[2023-09-18] MEDS: Levothyroxine 25 MCG Tab PO SCH (07:51)
[2023-09-18] MEDS: Levothyroxine 100 MCG Tab PO SCH (07:51)
[2023-09-18] MEDS: Spironolactone 25 MG Tab PO SCH (08:53)
[2023-09-18] MEDS: Aspirin 81 MG Tab.EC PO SCH (08:54)
[2023-09-18] MEDS: Furosemide 40 MG Tab PO SCH (15:25)
[2023-09-18] MEDS: Acetaminophen 325 MG Tab PO PRN (18:27)
[2023-09-19 05:50] LABS: HEMATOCRIT 32.9 % (34.3-46.0); HEMOGLOBIN 10.9 g/dL (11.2-15.5); MEAN CORPUSCULAR HGB CONC 33.1 g/dL (31.6-35.5); MEAN CORPUSCULAR VOLUME 102.5 fL (81.4-99.0); RED BLOOD CELL COUNT 3.21 M/uL (3.77-5.24); WHITE BLOOD CELL COUNT,WBC 5.2 K/uL (3.2-11.0)
[2023-09-19 06:03] LABS: A/G RATIO 0.6 (1.2-2.2); ALANINE AMINOTRANSFERASE,ALT 37 U/L (12-78); ALBUMIN 2.4 g/dL (3.4-5.0); ALKALINE PHOSPHATASE 176 U/L (46-116); ASPARTATE AMNIOTRANSFERASE,AST 32 U/L (15-37); BILIRUBIN TOTAL 1.5 mg/dL (0.2-1.0); BLOOD UREA NITROGEN,BUN 18 mg/dL (7-18); CALCIUM 8.5 mg/dL (8.5-10.1); CARBON DIOXIDE,CO2 25 mmol/L (21-32); CHLORIDE,CL 105 mmol/L (100-108); CREATININE 1.3 mg/dL (0.6-1.0); EST CRCL DRUG DOSING (CG) 30.03 mL/min; ESTIMATED GFR 43 mL/min (>60); GLUCOSE RANDOM 213 mg/dL (74-106); POTASSIUM,K 3.7 mmol/L (3.6-5.2); PROTEIN TOTAL,TP 6.5 g/dL (6.4-8.2); SODIUM,NA 139 mmol/L (140-148)
[2023-09-19 06:24] LABS: ANION GAP 12.7 mmol/L (5.0-14.0)
[2023-09-19] MEDS: metFORMIN 500 MG Tab PO SCH (17:22)
[2023-09-20 05:03] VITALS: BP 107/49; PULSE 82
[2023-09-20 05:36] LABS: CALCIUM 8.3 mg/dL (8.5-10.1); CREATININE 1.3 mg/dL (0.6-1.0); EST CRCL DRUG DOSING (CG) 30.03 mL/min; POTASSIUM,K 3.6 mmol/L (3.6-5.2)
[2023-09-20 05:38] LABS: ANION GAP 13.6 mmol/L (5.0-14.0)
[2023-09-20] MEDS: Cefdinir 300 MG Cap PO ONE (09:35)
== END 2023-09-20 10:10 | disposition home health service (06) | DRG 372 ==
LOC: JP.ED 10:15 → JP.MS 13:30
PROVIDERS: ADMIT Internal Medicine; ATTEND Internal Medicine
DX: K65.2 Spontaneous bacterial peritonitis (principal); K74.60 Unspecified cirrhosis of liver; I10 Essential (primary) hypertension; E11.9 Type 2 diabetes mellitus without complications; E72.20 Disorder of urea cycle metabolism, unspecified; N17.9 Acute kidney failure, unspecified; K76.82 Hepatic encephalopathy; K75.81 Nonalcoholic steatohepatitis (NASH); E11.22 Type 2 diabetes mellitus with diabetic chronic kidney disease; N18.9 Chronic kidney disease, unspecified; I12.9 Hypertensive chronic kidney disease with stage 1 through stage 4 chronic kidney disease, or unspecified chronic kidney disease; Z88.5 Allergy status to narcotic agent; K21.9 Gastro-esophageal reflux disease without esophagitis; M19.90 Unspecified osteoarthritis, unspecified site; M54.9 Dorsalgia, unspecified; G89.29 Other chronic pain; E03.9 Hypothyroidism, unspecified; E86.0 Dehydration; Z91.030 Bee allergy status; Z88.8 Allergy status to other drugs, medicaments and biological substances; Z79.82 Long term (current) use of aspirin; Z79.51 Long term (current) use of inhaled steroids; Z79.899 Other long term (current) drug therapy; Z79.84 Long term (current) use of oral hypoglycemic drugs; Z79.4 Long term (current) use of insulin; Z86.16 Personal history of COVID-19; Z90.49 Acquired absence of other specified parts of digestive tract; Z98.51 Tubal ligation status
CPT/HCPCS: 0241U; 36415; 80048; 80053; 80307; 81001; 82140; 82803; 82947; 83605; 83735; 84145; 85025; 85027; 93005; 93010; 96360; 96361; 99285; 99222; 99232; 99238; A9270-GY; J0696; J1815; J1815-GY; J3490; J7030; J7040

== ENCOUNTER 2024-02-08 14:18 | Emergency (ER) | payer MEDICARE, BC ==
[2024-02-08 16:53] LABS: ALANINE AMINOTRANSFERASE,ALT 37 U/L (12-78); ALBUMIN 2.6 g/dL (3.4-5.0); ALKALINE PHOSPHATASE 187 U/L (46-116); ASPARTATE AMNIOTRANSFERASE,AST 43 U/L (15-37); BLOOD UREA NITROGEN,BUN 34 mg/dL (7-18); C-REACTIVE PROTEIN 1.05 mg/dL (<0.50); CALCIUM 9.1 mg/dL (8.5-10.1); CARBON DIOXIDE,CO2 25 mmol/L (21-32); CHLORIDE,CL 103 mmol/L (100-108); CREATININE 2.1 mg/dL (0.6-1.0); EST CRCL DRUG DOSING (CG) 18.59 mL/min; ESTIMATED GFR 24 mL/min (>60); GLUCOSE RANDOM 183 mg/dL (74-106); POTASSIUM,K 4.9 mmol/L (3.6-5.2); PROTEIN TOTAL,TP 6.6 g/dL (6.4-8.2); SODIUM,NA 136 mmol/L (140-148)
[2024-02-08 16:55] LABS: A/G RATIO 0.7 (1.2-2.2); ANION GAP 12.9 mmol/L (5.0-14.0)
[2024-02-08] MEDS: Ondansetron 4 MG Tab.DIS PO ONE (17:24)
[2024-02-08 17:44] LABS: APPEARANCE,URINE CLOUDY (CLEAR); BILIRUBIN,URINE NEGATIVE (NEGATIVE); COLOR,URINE YELLOW (YELLOW); GLUCOSE,URINE NEGATIVE (NEGATIVE); KETONES,URINE NEGATIVE (NEGATIVE); LEUKOCYTE ESTERASE,URINE NEGATIVE (NEGATIVE); NITRITE,URINE NEGATIVE (NEGATIVE); OCCULT BLOOD,URINE NEGATIVE (NEGATIVE); PH,URINE 5.5 (5.0-8.0); PROTEIN,URINE NEGATIVE (NEGATIVE); UROBILINOGEN,URINE 0.2 EU/dL (0.2-1.0)
[2024-02-08 17:53] VITALS: BP 119/47; PULSE 87
[2024-02-08 17:56] LABS: AMORPHOUS SEDIMENT,URINE NOT SEEN; BACTERIA,URINE MODERATE; EPITHELIAL CELLS,URINE MODERATE; MUCUS,URINE FEW; RBC,URINE 0-5 (0-5)
== END 2024-02-08 18:51 | disposition home or self-care (01) ==
LOC: JP.ED 14:18
DX: N17.9 Acute kidney failure, unspecified (principal); R74.01 Elevation of levels of liver transaminase levels; I10 Essential (primary) hypertension; E11.9 Type 2 diabetes mellitus without complications; E03.9 Hypothyroidism, unspecified; K21.9 Gastro-esophageal reflux disease without esophagitis; Z90.49 Acquired absence of other specified parts of digestive tract; Z87.891 Personal history of nicotine dependence; Z91.030 Bee allergy status; Z88.6 Allergy status to analgesic agent; Z88.8 Allergy status to other drugs, medicaments and biological substances; Z79.82 Long term (current) use of aspirin; Z79.899 Other long term (current) drug therapy; Z79.890 Hormone replacement therapy; Z79.51 Long term (current) use of inhaled steroids; Z79.4 Long term (current) use of insulin
CPT/HCPCS: 36415; 80053; 81001; 83690; 86140; 99284; Q0162

== ENCOUNTER 2024-05-06 17:13 | Inpatient (IN) | payer MEDICARE, BC ==
[2024-05-06 17:52] LABS: BASOPHILS PERCENT AUTO 0.3 % (0.1-1.3); EOSINOPHILS ABSOLUTE AUTO 0.03 K/uL (0.00-0.40); EOSINOPHILS PERCENT AUTO 0.9 % (0.0-5.4); HEMATOCRIT 31.6 % (34.3-46.0); HEMOGLOBIN 10.6 g/dL (11.2-15.5); IMMATURE GRAN PERCENT AUTO 0.6 % (0.0-0.7); LYMPHOCYTES ABSOLUTE AUTO 0.25 K/uL (0.8-3.3); LYMPHOCYTES PERCENT AUTO 7.7 % (11.4-47.7); MEAN CORPUSCULAR HEMOGLOBIN 32.9 pg (31.6-35.5); MEAN CORPUSCULAR HGB CONC 33.5 g/dL (31.6-35.5); MEAN CORPUSCULAR VOLUME 98.1 fL (81.4-99.0); MONOCYTES ABSOLUTE AUTO 0.34 K/uL (0.20-0.90); MONOCYTES PERCENT AUTO 10.5 % (3.3-12.6); NEUTROPHILS ABSOLUTE AUTO 2.59 K/uL (1.0-7.6); PLATELET COUNT,PLT 41 K/uL (130-375); RED BLOOD CELL COUNT 3.22 M/uL (3.77-5.24); WHITE BLOOD CELL COUNT,WBC 3.2 K/uL (3.2-11.0)
[2024-05-06 17:59] LABS: BASOPHILS ABSOLUTE AUTO 0.01 K/uL (0.00-0.10); IMMATURE GRAN ABSOLUTE AUTO 0.02 K/uL (0.00-0.23)
[2024-05-06 18:10] LABS: INR 1.4; PROTHROMBIN TIME 13.9 sec (9.2-10.6)
[2024-05-06 18:16] LABS: A/G RATIO 0.7 (1.2-2.2); ALANINE AMINOTRANSFERASE,ALT 48 U/L (12-78); ALBUMIN 2.8 g/dL (3.4-5.0); ALKALINE PHOSPHATASE 161 U/L (46-116); ASPARTATE AMNIOTRANSFERASE,AST 52 U/L (15-37); BILIRUBIN TOTAL 2.1 mg/dL (0.2-1.0); BLOOD UREA NITROGEN,BUN 30 mg/dL (7-18); C-REACTIVE PROTEIN 3.86 mg/dL (<0.50); CALCIUM 9.2 mg/dL (8.5-10.1); CARBON DIOXIDE,CO2 22 mmol/L (21-32); CHLORIDE,CL 100 mmol/L (100-108); CREATININE 2.1 mg/dL (0.6-1.0); EST CRCL DRUG DOSING (CG) 18.59 mL/min; ESTIMATED GFR 24 mL/min (>60); GLUCOSE RANDOM 226 mg/dL (74-106); POTASSIUM,K 4.5 mmol/L (3.6-5.2); SODIUM,NA 134 mmol/L (140-148)
[2024-05-06 18:18] LABS: ANION GAP 16.5 mmol/L (5.0-14.0)
[2024-05-06 18:25] LABS: LACTIC ACID 4.6 mmol/L (0.4-2.0)
[2024-05-06] MEDS: Sodium Chloride 0.9% 500 ML IV ONE (19:18)
[2024-05-06] MEDS: Sodium Chloride 0.9% 10 ML Syringe FLUSH PRN (19:18)
[2024-05-06] MEDS: cefTRIAXone 2 GM in Sodium Chloride 0.9% 50 ML IV ONE (19:19)
[2024-05-06] MEDS: Sodium Chloride 0.9% 1,000 ML IV SCH ×2 (20:52→22:12)
[2024-05-06] MEDS ORDERED: Albuterol 6.7 GM Inhaler INH PRN (21:31)
[2024-05-06] MEDS ORDERED: Ondansetron 4 MG Tab.DIS PO PRN (21:31)
[2024-05-06] MEDS: Azithromycin 500 MG in Sodium Chloride 0.9% 250 ML IV SCH (22:16)
[2024-05-06] MEDS: Lactulose Soln 10 GM/15 ML 15 ML UD Cup PO SCH (22:16)
[2024-05-06] MEDS: Insulin Lispro 100 Unit/ML 3 ML KwikPen SUBCUT SCH (22:20)
[2024-05-07] MEDS: Piperacillin/Tazobactam 4.5 GM in Sodium Chloride 0.9% 100 ML IV ONE ×2 (00:28→04:05)
[2024-05-07] MEDS: Sodium Chloride 0.9% 1,000 ML IV SCH (00:29)
[2024-05-07 05:29] LABS: BASOPHILS PERCENT AUTO 0.4 % (0.1-1.3); EOSINOPHILS ABSOLUTE AUTO 0.12 K/uL (0.00-0.40); EOSINOPHILS PERCENT AUTO 4.6 % (0.0-5.4); HEMATOCRIT 27.2 % (34.3-46.0); HEMOGLOBIN 9.3 g/dL (11.2-15.5); LYMPHOCYTES ABSOLUTE AUTO 0.27 K/uL (0.8-3.3); LYMPHOCYTES PERCENT AUTO 10.4 % (11.4-47.7); MEAN CORPUSCULAR HEMOGLOBIN 33.6 pg (31.6-35.5); MEAN CORPUSCULAR HGB CONC 34.2 g/dL (31.6-35.5); MEAN CORPUSCULAR VOLUME 98.2 fL (81.4-99.0); MONOCYTES ABSOLUTE AUTO 0.47 K/uL (0.20-0.90); MONOCYTES PERCENT AUTO 18.1 % (3.3-12.6); NEUTROPHILS ABSOLUTE AUTO 1.73 K/uL (1.0-7.6); NEUTROPHILS PERCENT AUTO 66.5 % (40.0-78.1); PLATELET COUNT,PLT 44 K/uL (130-375); RED BLOOD CELL COUNT 2.77 M/uL (3.77-5.24); WHITE BLOOD CELL COUNT,WBC 2.6 K/uL (3.2-11.0)
[2024-05-07 05:32] LABS: BASOPHILS ABSOLUTE AUTO 0.01 K/uL (0.00-0.10)
[2024-05-07 05:41] LABS: CALCIUM 8.2 mg/dL (8.5-10.1); CREATININE 1.8 mg/dL (0.6-1.0); EST CRCL DRUG DOSING (CG) 21.69 mL/min; POTASSIUM,K 4.5 mmol/L (3.6-5.2)
[2024-05-07] MEDS ORDERED: cefTRIAXone 1 GM in Sodium Chloride 0.9% 50 ML IV SCH (06:00)
[2024-05-07 06:04] LABS: ANION GAP 13.5 mmol/L (5.0-14.0)
[2024-05-07] MEDS ORDERED: Piperacillin/Tazobactam 3.375 GM in Sodium Chloride 0.9% 50 ML IV SCH ×2 (06:10→08:15)
[2024-05-07] MEDS ORDERED: Levothyroxine 50 MCG Tab PO SCH (07:00)
[2024-05-07] MEDS: Insulin Glargine,Human Rec. Analog 100 Units/ML 3 ML Pen SUBCUT SCH (08:09)
[2024-05-07] MEDS: Insulin Lispro 100 Unit/ML 3 ML KwikPen SUBCUT SCH ×2 (08:10→08:11)
[2024-05-07] MEDS: Rifaximin 550 MG Tab PO SCH (08:10)
[2024-05-07] MEDS: Cholecalciferol (Vitamin D3) 25 MCG Tab PO SCH (08:10)
[2024-05-07] MEDS: Calcium Carbonate 500 MG Tab.Chew PO SCH (08:10)
[2024-05-07] MEDS: Aspirin 81 MG Tab.EC PO SCH (08:10)
[2024-05-07] MEDS: Spironolactone 25 MG Tab PO SCH (08:10)
[2024-05-07] MEDS: Levothyroxine 100 MCG, Levothyroxine 25 MCG PO SCH (08:11)
[2024-05-07] MEDS: Pantoprazole 40 MG Tab.CR PO SCH (08:11)
[2024-05-07] MEDS: Magnesium Oxide 400 MG Tab PO SCH (08:11)
[2024-05-07] MEDS: Furosemide 40 MG Tab PO SCH (08:11)
[2024-05-07] MEDS: Acyclovir 200 MG Cap PO SCH (08:12)
[2024-05-07] MEDS: Acetaminophen/HYDROcodone 325-5 MG Tab PO PRN (10:46)
[2024-05-07 10:48] LABS: BODY FLUID TYPE THORACENTESIS FLUID
[2024-05-07 10:48] LABS: BODY FLUID TYPE THORACENTESIS FLUID
[2024-05-07 11:08] LABS: AMYLASE,BODY FLUID 12 U/L; GLUCOSE,BODY FLUID 173 mg/dL; LACTATE DEHYDROGENASE,BODY FL 40 IU/L; LIPASE,BODY FLUID 7 U/L
[2024-05-07 11:17] LABS: AMYLASE BODY FLUID TYPE THORACENTESIS FLUID
[2024-05-07 12:12] LABS: MONONUCLEAR, BODY FLUID 93 %; POLYMORPHONUCLEAR, BODY FLUID 7 %; RBC,BODY FLUID 1922 /ul; WBC BODY FLUID 72 /ul
[2024-05-07] MEDS: Piperacillin/Tazobactam/Dext 4.5 GM in Premix Bag 1 BAG IV SCH (12:12)
[2024-05-08 05:26] LABS: BASOPHILS PERCENT AUTO 0.5 % (0.1-1.3); EOSINOPHILS ABSOLUTE AUTO 0.17 K/uL (0.00-0.40); EOSINOPHILS PERCENT AUTO 4.3 % (0.0-5.4); HEMOGLOBIN 9.5 g/dL (11.2-15.5); IMMATURE GRAN PERCENT AUTO 0.3 % (0.0-0.7); LYMPHOCYTES ABSOLUTE AUTO 0.49 K/uL (0.8-3.3); LYMPHOCYTES PERCENT AUTO 12.5 % (11.4-47.7); MEAN CORPUSCULAR HEMOGLOBIN 33.2 pg (31.6-35.5); MEAN CORPUSCULAR HGB CONC 32.8 g/dL (31.6-35.5); MEAN CORPUSCULAR VOLUME 101.4 fL (81.4-99.0); MONOCYTES ABSOLUTE AUTO 0.85 K/uL (0.20-0.90); MONOCYTES PERCENT AUTO 21.6 % (3.3-12.6); NEUTROPHILS ABSOLUTE AUTO 2.39 K/uL (1.0-7.6); NEUTROPHILS PERCENT AUTO 60.8 % (40.0-78.1); PLATELET COUNT,PLT 40 K/uL (130-375); RED BLOOD CELL COUNT 2.86 M/uL (3.77-5.24); WHITE BLOOD CELL COUNT,WBC 3.9 K/uL (3.2-11.0)
[2024-05-08 05:44] LABS: C-REACTIVE PROTEIN 4.09 mg/dL (<0.50); CALCIUM 8.1 mg/dL (8.5-10.1); CREATININE 1.9 mg/dL (0.6-1.0); EST CRCL DRUG DOSING (CG) 20.55 mL/min; POTASSIUM,K 4.2 mmol/L (3.6-5.2)
[2024-05-08 05:54] LABS: BASOPHILS ABSOLUTE AUTO 0.02 K/uL (0.00-0.10); IMMATURE GRAN ABSOLUTE AUTO 0.01 K/uL (0.00-0.23)
[2024-05-08 05:55] LABS: ANION GAP 13.2 mmol/L (5.0-14.0)
[2024-05-08] MEDS: Furosemide 40 MG Tab PO SCH (08:12)
[2024-05-09 05:21] LABS: BASOPHILS PERCENT AUTO 0.5 % (0.1-1.3); EOSINOPHILS ABSOLUTE AUTO 0.15 K/uL (0.00-0.40); EOSINOPHILS PERCENT AUTO 3.6 % (0.0-5.4); HEMATOCRIT 28.7 % (34.3-46.0); HEMOGLOBIN 9.6 g/dL (11.2-15.5); IMMATURE GRAN PERCENT AUTO 0.5 % (0.0-0.7); LYMPHOCYTES ABSOLUTE AUTO 0.65 K/uL (0.8-3.3); LYMPHOCYTES PERCENT AUTO 15.8 % (11.4-47.7); MEAN CORPUSCULAR HEMOGLOBIN 33.6 pg (31.6-35.5); MEAN CORPUSCULAR HGB CONC 33.4 g/dL (31.6-35.5); MEAN CORPUSCULAR VOLUME 100.3 fL (81.4-99.0); MONOCYTES ABSOLUTE AUTO 0.53 K/uL (0.20-0.90); MONOCYTES PERCENT AUTO 12.9 % (3.3-12.6); NEUTROPHILS ABSOLUTE AUTO 2.74 K/uL (1.0-7.6); NEUTROPHILS PERCENT AUTO 66.7 % (40.0-78.1); PLATELET COUNT,PLT 58 K/uL (130-375); RED BLOOD CELL COUNT 2.86 M/uL (3.77-5.24); WHITE BLOOD CELL COUNT,WBC 4.1 K/uL (3.2-11.0)
[2024-05-09 05:30] LABS: BASOPHILS ABSOLUTE AUTO 0.02 K/uL (0.00-0.10); IMMATURE GRAN ABSOLUTE AUTO 0.02 K/uL (0.00-0.23)
[2024-05-09 05:41] LABS: C-REACTIVE PROTEIN 3.73 mg/dL (<0.50); CREATININE 1.8 mg/dL (0.6-1.0); EST CRCL DRUG DOSING (CG) 21.69 mL/min; POTASSIUM,K 3.8 mmol/L (3.6-5.2)
[2024-05-09 05:44] LABS: ANION GAP 11.8 mmol/L (5.0-14.0)
[2024-05-09 10:21] VITALS: BP 116/48; PULSE 87
== END 2024-05-09 11:25 | disposition home or self-care (01) | DRG 432 ==
LOC: JP.ED 17:13 → JP.MS 19:24
PROVIDERS: ADMIT Hospitalist; ATTEND Hospitalist
PROC: 0W993ZZ Drainage of Right Pleural Cavity, Percutaneous Approach (ICD-10-PCS; principal; 2024-05-07)
DX: K74.69 Other cirrhosis of liver (principal); K74.60 Unspecified cirrhosis of liver; J18.9 Pneumonia, unspecified organism; E72.20 Disorder of urea cycle metabolism, unspecified; J90 Pleural effusion, not elsewhere classified; K76.82 Hepatic encephalopathy; Z66 Do not resuscitate; I10 Essential (primary) hypertension; E11.9 Type 2 diabetes mellitus without complications; E03.9 Hypothyroidism, unspecified; K21.9 Gastro-esophageal reflux disease without esophagitis; M19.90 Unspecified osteoarthritis, unspecified site; G89.29 Other chronic pain; M54.9 Dorsalgia, unspecified; H54.7 Unspecified visual loss; Z88.6 Allergy status to analgesic agent; Z88.8 Allergy status to other drugs, medicaments and biological substances; Z79.4 Long term (current) use of insulin; Z79.82 Long term (current) use of aspirin; Z79.84 Long term (current) use of oral hypoglycemic drugs; Z98.51 Tubal ligation status; Z90.49 Acquired absence of other specified parts of digestive tract; Z91.030 Bee allergy status; Z79.890 Hormone replacement therapy; Z79.899 Other long term (current) drug therapy; Z98.890 Other specified postprocedural states
CPT/HCPCS: 36415; 74176; 80053; 82140; 83605; 84145; 85025; 85610; 86140; 87040 ×2; 96374; 99285; J0696; J3490 ×2; J7040; 71045; 71045-26; 80048; 82150; 82945; 82947; 83615; 83986; 87070; 87205; 88112; 88305; 89050; 99223; 99232; 99239; A9270-GY; J0456; J1815; J1815-GY; J2543; J7030; J7050

== ENCOUNTER 2024-05-19 19:34 | Inpatient (IN) | payer MEDICARE, BC ==
[2024-05-19 20:59] LABS: BASOPHILS ABSOLUTE AUTO 0.03 K/uL (0.00-0.10); BASOPHILS PERCENT AUTO 0.9 % (0.1-1.3); HEMOGLOBIN 10.1 g/dL (11.2-15.5); IMMATURE GRAN PERCENT AUTO 0.3 % (0.0-0.7); MEAN CORPUSCULAR HEMOGLOBIN 33.9 pg (31.6-35.5); MEAN CORPUSCULAR HGB CONC 32.6 g/dL (31.6-35.5); MONOCYTES ABSOLUTE AUTO 0.36 K/uL (0.20-0.90); MONOCYTES PERCENT AUTO 10.8 % (3.3-12.6); NEUTROPHILS ABSOLUTE AUTO 2.33 K/uL (1.0-7.6); PLATELET COUNT,PLT 61 K/uL (130-375); RED BLOOD CELL COUNT 2.98 M/uL (3.77-5.24); WHITE BLOOD CELL COUNT,WBC 3.3 K/uL (3.2-11.0)
[2024-05-19 21:00] LABS: IMMATURE GRAN ABSOLUTE AUTO 0.01 K/uL (0.00-0.23)
[2024-05-19 21:20] LABS: A/G RATIO 0.6 (1.2-2.2); ALANINE AMINOTRANSFERASE,ALT 30 U/L (12-78); ALBUMIN 2.6 g/dL (3.4-5.0); ALKALINE PHOSPHATASE 117 U/L (46-116); ASPARTATE AMNIOTRANSFERASE,AST 41 U/L (15-37); BILIRUBIN TOTAL 1.2 mg/dL (0.2-1.0); BLOOD UREA NITROGEN,BUN 25 mg/dL (7-18); CALCIUM 9.8 mg/dL (8.5-10.1); CARBON DIOXIDE,CO2 21 mmol/L (21-32); CHLORIDE,CL 111 mmol/L (100-108); CREATININE 1.8 mg/dL (0.6-1.0); EST CRCL DRUG DOSING (CG) 21.69 mL/min; ESTIMATED GFR 29 mL/min (>60); GLUCOSE RANDOM 240 mg/dL (74-106); POTASSIUM,K 4.6 mmol/L (3.6-5.2); PROTEIN TOTAL,TP 6.9 g/dL (6.4-8.2); SODIUM,NA 142 mmol/L (140-148)
[2024-05-19 21:21] LABS: ANION GAP 14.6 mmol/L (5.0-14.0)
[2024-05-19 22:27] LABS: BASE EXCESS ARTERIAL -7.2 mm/L; BICARBONATE,ARTERIAL 17.2 mmol/L (22.0-26.0); CARBOXYHEMOGLOBIN 1.7 % (0.0-1.6); O2 SATURATION ARTERIAL 93.7 % (95.0-98.0); OXYHEMOGLOBIN 91.2 %; PCO2 ARTERIAL 32.7 mmHg (35.0-42.0); PO2 ARTERIAL 70.7 mmHg (75.0-100.0); TOTAL HEMOGLOBIN 10.5 g/dL (12.0-16.0)
[2024-05-19] MEDS ORDERED: Albuterol 0.083% 2.5 MG/3 ML Neb Soln NEB PRN (23:18)
[2024-05-19] MEDS: Morphine 2 MG/ML SYRINGE IVPUSH PRN (23:46)
[2024-05-19] MEDS: Ondansetron 4 MG/2 ML SDV IV PRN (23:59)
[2024-05-20] MEDS: Lactulose Soln 10 GM/15 ML 15 ML UD Cup PO ONE
[2024-05-20] MEDS: Sodium Chloride 0.9% 1,000 ML IV SCH
[2024-05-20] MEDS: Furosemide 40 MG Tab PO SCH
[2024-05-20] MEDS: Ampicillin/Sulbactam Na 3 GM in Sodium Chloride 0.9% 100 ML IV SCH (00:03)
[2024-05-20] MEDS: Rifaximin 550 MG Tab PO SCH (00:11)
[2024-05-20] MEDS: VANCOmycin 0.75 GM in Sodium Chloride 0.9% 250 ML IV SCH (00:43)
[2024-05-20] MEDS ORDERED: Levothyroxine 50 MCG Tab PO SCH (07:30)
[2024-05-20 07:33] LABS: APPEARANCE,URINE CLEAR (CLEAR); BILIRUBIN,URINE NEGATIVE (NEGATIVE); COLOR,URINE YELLOW (YELLOW); GLUCOSE,URINE NEGATIVE (NEGATIVE); KETONES,URINE NEGATIVE (NEGATIVE); LEUKOCYTE ESTERASE,URINE NEGATIVE (NEGATIVE); NITRITE,URINE NEGATIVE (NEGATIVE); OCCULT BLOOD,URINE NEGATIVE (NEGATIVE); PH,URINE 5.5 (5.0-8.0); PROTEIN,URINE NEGATIVE (NEGATIVE); UROBILINOGEN,URINE 0.2 EU/dL (0.2-1.0)
[2024-05-20 07:41] LABS: AMORPHOUS SEDIMENT,URINE FEW; BACTERIA,URINE FEW; EPITHELIAL CELLS,URINE FEW; MUCUS,URINE NOT SEEN; RBC,URINE 0-5 (0-5); WBC,URINE 0-5 (0-5)
[2024-05-20] MEDS: Insulin Glargine,Human Rec. Analog 100 Units/ML 3 ML Pen SUBCUT SCH (08:09)
[2024-05-20] MEDS: Pantoprazole 40 MG Tab.CR PO SCH (08:11)
[2024-05-20] MEDS: Levothyroxine 100 MCG, Levothyroxine 25 MCG PO SCH (08:12)
[2024-05-20] MEDS: Spironolactone 25 MG Tab PO SCH (08:13)
[2024-05-20] MEDS: Magnesium Oxide 400 MG Tab PO SCH (08:14)
[2024-05-20] MEDS: Lactulose Soln 10 GM/15 ML 15 ML UD Cup PO SCH (08:14)
[2024-05-20] MEDS: Acyclovir 200 MG Cap PO SCH (08:15)
[2024-05-20] MEDS ORDERED: Insulin Glargine,Human Rec. Analog 100 Units/ML 3 ML Pen SUBCUT SCH (09:00)
[2024-05-20 12:35] LABS: BODY FLUID TYPE PLEURAL FLUID
[2024-05-20 13:06] LABS: AMYLASE,BODY FLUID 12 U/L
[2024-05-20 13:08] LABS: GLUCOSE,BODY FLUID 149 mg/dL
[2024-05-20 13:09] LABS: AMYLASE BODY FLUID TYPE THORACENTESIS FLUID; PROTEIN,BODY FLUID < 2 g/dL
[2024-05-20 13:50] LABS: MONONUCLEAR, BODY FLUID 96 %; POLYMORPHONUCLEAR, BODY FLUID 4 %; RBC,BODY FLUID 2675 /ul; WBC BODY FLUID 175 /ul
[2024-05-20] MEDS: cefTRIAXone 1 GM in Sodium Chloride 0.9% 50 ML IV SCH (17:00)
[2024-05-20] MEDS: Doxycycline 100 MG in Sodium Chloride 0.9% 100 ML IV SCH (17:00)
[2024-05-20] MEDS: Bumetanide 1 MG/4 ML MDV IVPUSH SCH (18:26)
[2024-05-20] MEDS: Insulin Lispro 100 Unit/ML 3 ML KwikPen SUBCUT SCH (20:10)
[2024-05-21 08:48] LABS: ANION GAP 8.6 mmol/L (5.0-14.0); CALCIUM 9.3 mg/dL (8.5-10.1); CREATININE 1.9 mg/dL (0.6-1.0); EST CRCL DRUG DOSING (CG) 20.37 mL/min; POTASSIUM,K 3.6 mmol/L (3.6-5.2)
[2024-05-21] MEDS: Potassium Chloride 20 MEQ Tab.ER PO ONE (18:39)
[2024-05-22 05:44] LABS: ANION GAP 9.6 mmol/L (5.0-14.0); CALCIUM 8.9 mg/dL (8.5-10.1); EST CRCL DRUG DOSING (CG) 19.35 mL/min; POTASSIUM,K 4.3 mmol/L (3.6-5.2)
[2024-05-22] MEDS ORDERED: Sodium Chloride 0.9% 10 ML Syringe IV PRN (08:26)
[2024-05-23 05:55] LABS: ANION GAP 8.3 mmol/L (5.0-14.0); CALCIUM 8.7 mg/dL (8.5-10.1); CREATININE 1.8 mg/dL (0.6-1.0); EST CRCL DRUG DOSING (CG) 21.5 mL/min; POTASSIUM,K 4.2 mmol/L (3.6-5.2)
[2024-05-23] MEDS: Bumetanide 1 MG Tab PO SCH (07:47)
[2024-05-23] MEDS: Doxycycline 100 MG Cap PO SCH (09:10)
[2024-05-23 11:40] VITALS: BP 118/51; PULSE 81
[2024-05-23] MEDS ORDERED: Bumetanide 1 MG Tab PO SCH (14:00)
== END 2024-05-23 14:10 | disposition home or self-care (01) | DRG 193 ==
LOC: JP.ED 19:34 → JP.ICU 22:40
PROVIDERS: ADMIT Hospitalist; ATTEND Hospitalist
PROC: 0W993ZZ Drainage of Right Pleural Cavity, Percutaneous Approach (ICD-10-PCS; principal; 2024-05-20)
DX: J18.9 Pneumonia, unspecified organism (principal); I10 Essential (primary) hypertension; J96.01 Acute respiratory failure with hypoxia; E11.9 Type 2 diabetes mellitus without complications; E72.20 Disorder of urea cycle metabolism, unspecified; N18.4 Chronic kidney disease, stage 4 (severe); R18.8 Other ascites; J91.8 Pleural effusion in other conditions classified elsewhere; E03.9 Hypothyroidism, unspecified; M19.90 Unspecified osteoarthritis, unspecified site; G89.29 Other chronic pain; M54.9 Dorsalgia, unspecified; K21.9 Gastro-esophageal reflux disease without esophagitis; H54.7 Unspecified visual loss; K74.60 Unspecified cirrhosis of liver; I12.9 Hypertensive chronic kidney disease with stage 1 through stage 4 chronic kidney disease, or unspecified chronic kidney disease; E11.22 Type 2 diabetes mellitus with diabetic chronic kidney disease; Z91.030 Bee allergy status; Z88.6 Allergy status to analgesic agent; Z88.8 Allergy status to other drugs, medicaments and biological substances; Z79.4 Long term (current) use of insulin; Z79.82 Long term (current) use of aspirin; Z79.84 Long term (current) use of oral hypoglycemic drugs; Z79.890 Hormone replacement therapy; Z79.899 Other long term (current) drug therapy; Z90.89 Acquired absence of other organs; Z90.49 Acquired absence of other specified parts of digestive tract; Z98.51 Tubal ligation status; Z87.891 Personal history of nicotine dependence
CPT/HCPCS: 36415; 36600; 71045; 71045-26; 71250; 71250-26; 80048; 80053; 81001; 82140; 82150; 82803; 82945; 82947; 83615; 84145; 84157; 85025; 86140; 87040; 87070; 87205; 88112; 88305; 88341; 88342; 89050; 93306; 97161-GP; 99222; 99232; 99238; 99285; A9270-GY; J0295; J0696; J1815; J1815-GY; J2270; J2405; J3490; J7030; J7050

== ENCOUNTER 2024-06-04 12:16 | Emergency (ER) | payer MEDICARE, BC ==
[2024-06-04 14:51] LABS: APPEARANCE,URINE CLEAR (CLEAR); BILIRUBIN,URINE NEGATIVE (NEGATIVE); COLOR,URINE YELLOW (YELLOW); GLUCOSE,URINE NEGATIVE (NEGATIVE); KETONES,URINE NEGATIVE (NEGATIVE); LEUKOCYTE ESTERASE,URINE NEGATIVE (NEGATIVE); NITRITE,URINE NEGATIVE (NEGATIVE); OCCULT BLOOD,URINE NEGATIVE (NEGATIVE); PH,URINE 5.5 (5.0-8.0); PROTEIN,URINE NEGATIVE (NEGATIVE); UROBILINOGEN,URINE 0.2 EU/dL (0.2-1.0)
[2024-06-04 14:58] LABS: AMORPHOUS SEDIMENT,URINE MODERATE; BACTERIA,URINE MODERATE; EPITHELIAL CELLS,URINE RARE; MUCUS,URINE NOT SEEN; RBC,URINE NOT SEEN (0-5); WBC,URINE 0-5 (0-5)
[2024-06-04 17:55] VITALS: BP 112/42; PULSE 94
== END 2024-06-04 18:00 ==
LOC: JP.ED 12:16
DX: K74.69 Other cirrhosis of liver (principal); J90 Pleural effusion, not elsewhere classified; R94.4 Abnormal results of kidney function studies; I10 Essential (primary) hypertension; K21.9 Gastro-esophageal reflux disease without esophagitis; E11.9 Type 2 diabetes mellitus without complications; E03.9 Hypothyroidism, unspecified; Z90.49 Acquired absence of other specified parts of digestive tract; Z86.16 Personal history of COVID-19; Z87.891 Personal history of nicotine dependence; Z79.890 Hormone replacement therapy; Z79.84 Long term (current) use of oral hypoglycemic drugs; Z79.899 Other long term (current) drug therapy; Z79.4 Long term (current) use of insulin; Z79.85 Long-term (current) use of injectable non-insulin antidiabetic drugs; Z79.82 Long term (current) use of aspirin; Z88.6 Allergy status to analgesic agent; Z88.8 Allergy status to other drugs, medicaments and biological substances; Z91.030 Bee allergy status
CPT/HCPCS: 71046; 71046-26; 81001; 87086; 99285